=== PATIENT | male | born 1945 | race Caucasian/White ===

== ENCOUNTER 2025-05-29 00:02 | Inpatient (IN) | payer MEDICARE, SELFPAY ==
[2025-05-28] VITALS (12 sets, daily range): BP systolic 90–152; BP diastolic 51–94
[2025-05-28 15:05] LABS: Hematocrit 29.5 % (39.0-52.0); Hemoglobin 9.8 g/dL (13.0-18.0); Mean Corp Hgb Conc. 33.2 g/dL (33.0-37.0); Mean Corpuscular Volume 97.4 fL (80.0-94.0); Nucleated Red Blood Cells % 0 % (-); Platelet Count 243 10^3/uL (130-400); Red Cell Dist. Width 15.6 % (11.5-14.5)
[2025-05-28 15:25] LABS: ALT (SGPT) 14 U/L (0-50); AST (SGOT) 19 U/L (17-59); Albumin 4.4 g/dl (3.5-5.0); Alkaline Phosphatase 64 U/L (38-126); Blood Urea Nitrogen 23 mg/dl (9-20); Calcium 9.2 mg/dl (8.4-10.2); Carbon Dioxide 25 mmol/L (22-30); Chloride 104 mmol/L (98-107); Glucose 212 mg/dl (70-99); Potassium 4.7 mmol/L (3.5-5.1); Sodium 138 mmol/L (135-145); Total Protein 7.0 g/dl (6.3-8.2); eGFR > 60.00
[2025-05-28] MEDS: TYLENOL 1000 MG PO (18:40)
[2025-05-28] MEDS: TORADOL 15 MG IM (18:40)
--- NOTE | 2025-05-28 19:32 | ED.GENMED ---
History of Present Illness
General
Chief Complaint: Fall
Source: patient and family
Exam Limitations: none
Time Seen by Provider: 05/28/25 17:02
Nursing documentation reviewed up to this point in time: agreed with
History of Present Illness
History of Present Illness:
79-year-old male presenting to the emergency department today with concerns of multiple falls, feeling off balance and lightheaded at home. Now having significant pain to the left hip which he believes he hit when falling. Unable to ambulate at
this point secondary to hip pain on the left side. Denies any specific chest pain shortness of breath nausea vomiting. Denies numbness or any focal weakness
Past History
Past History
ED Past Medical History: NIDDM and Other (Cataracts)
ED Past Surgical History: Orthopedic
Review of Systems
Review of Systems
Allergies reviewed?: Yes
All Other Systems: ROS reviewed and negative except as documented in HPI and ROS
Phy Exam
Physical Exam
Physical Exam:
GENERAL: Alert , in no apparent distress
EYE: pupils equal and reactive
NECK: Supple, no significant adenopathy.
ENT: o/p clr, mmm.
CARDIAC: Regular rate and rhythm .
LUNGS: Clear breath sounds bilaterally, no acute respiratory distress, no wheezes/rales/rhonchi
ABDOMEN: Soft, without focal tenderness, no r/g, no cvat
NEUROLOGICAL: Alert and oriented, no focal neuro deficits
SKIN: Warm and dry, skin intact.
MUSCULOSKELETAL: Significant discomfort to palpation to the left lateral hip. Unable to move at the hip secondary to pain. No overlying skin changes
PSYCH: Normal and appropriate interaction.
Course
Orders/Labs/Results
Orders:
Orders
05/28/25 14:35
EKG [Electrocardiogram (*1)] Urgent
Reason for Study: Vertigo / Dizzy
EKG- Treatment ONCE
05/28/25 14:37
CT Head W/o Iv Contrast Urgent
Comment:
Reason For Exam: fall
05/28/25 14:48
Complete Blood Count/With Diff Urgent
Comprehensive Metabolic Panel Urgent
Creatine Phosphokinase Urgent
Comment: ADD ON
05/28/25 17:35
Hip, Left 2-3 Views [CR Hip - LT w/wo Pel 2-3 Vw*] Urgent
Comment:
Reason For Exam: left hip pain after fall pelvic pain
Include a pelvis x-ray?: Yes
05/28/25 17:55
Add On- LAB Urgent
Tests Added?: Creatine phosphokinase
05/28/25 18:34
Acetaminophen [Tylenol] 1,000 mg PO NOW STA
Ketorolac [Toradol] 15 mg IM NOW STA
05/28/25 19:05
CT Pelvis W/o Iv Contrast Urgent
Comment:
Reason For Exam: left hip pain xray WNL, cant walk
05/28/25 22:21
0.9% Sodium Chloride 500 ml [Nss] 500 ml IV BOLUS
Fentanyl Citrate/Pf [Sublimaze] 50 mcg IV NOW STA
Abnormal Lab Results
05/28/25
14:48
WBC 11.9 H 10^3/uL
(4.8-10.8)
RBC 3.03 L 10^6/uL
(4.70-6.10)
Hgb 9.8 L g/dL
(13.0-18.0)
Hct 29.5 L %
(39.0-52.0)
MCV 97.4 H fL
(80.0-94.0)
MCH 32.3 H pg
(27.0-31.0)
RDW 15.6 H %
(11.5-14.5)
MPV 11.6 H fL
(7.4-10.4)
Absolute Neuts (auto) 9.7 H 10^3/uL
(1.4-6.5)
Absolute Lymphs (auto) 1.1 L 10^3/uL
(1.2-3.4)
Absolute Monos (auto) 0.9 H 10^3/uL
(0.1-0.6)
Neutrophils % 82.1 H %
(42.2-75.2)
Lymphocytes % 9.0 L %
(20.5-51.1)
BUN 23 H mg/dl
(9-20)
Glucose 212 H mg/dl
(70-99)
Total Bilirubin 1.4 H mg/dl
(0.2-1.3)
05/28/25 14:48
05/28/25 14:48
Vital Signs
Initial and Last Documented VS:
Initial Vital Signs
Temp Pulse Resp BP Pulse Ox
97.5 F 87 16 121/78 97
05/28/25 14:30 05/28/25 14:30 05/28/25 14:30 05/28/25 14:30 05/28/25 14:30
Last Documented Vital Signs
Temp Pulse Resp BP Pulse Ox
97.5 F 83 15 90/55 93
05/28/25 14:30 05/28/25 22:45 05/28/25 22:45 05/28/25 22:30 05/28/25 22:45
MDM/Problems Addressed
MDM/Problems Addressed:
79-year-old male presenting to the emergency department after multiple falls over the past day or so. Has been feeling somewhat lightheaded and believes he passed out yesterday. Did feel lightheaded preceding this. Also felt weak today fell to
the ground as well hit his right hip. Was already having severe left-sided hip pain. Was unable to ambulate at home or stand up. Does have a history of pelvic fractures. Initial x-ray it was unclear whether there was any specific fracture CT
scan was then ordered that confirmed greater trochanter fracture. No evidence of additional fracture otherwise. Head CT negative labs close the patient's baseline is hyperglycemic but no signs of DKA. Patient unable to walk at this point was
given Toradol and Tylenol with some relief but still significant pain unable to weight-bear plan to admit for further assessment.
*Pulse Oximetry
SaO2: 100
Oxygen Mode of Delivery: Room air
Patient hypoxic: no (93)
*Critical Care Note
Total Time (30-74mins, 75-104mins- exclusive of procedures): Not Applicable
ED Attending Note
-
Portions of this chart may have been created with voice recognition software.� Occasional wrong word or��sound alike� substitutions may have occurred due to the inherent limitations of voice recognition software.
Discharge Plan
Departure
Patient Disposition: Admit
Date of Disposition: 05/28/25
Time of Disposition: 23:00
Admit to: Med/Surg
Admit to doctor: Bailey
Presentation/result/management discussed w/ accepting MD/DO: Hospitalist
Patient with high blood pressure during this ER visit?: No
Condition: Good
Covid-19: Not Applicable
Discharge Problem:
Closed fracture of greater trochanter of femur
Prescriptions:
No Action
multivitamin Tablet
1 tab PO DAILY
metformin 500 mg tablet
1,000 mg PO BID@0800,1700
cyanocobalamin (vitamin B-12) 1,000 mcg Tablet
1,000 mcg PO DAILY Qty: 0
ascorbic acid (vitamin C) [Vitamin C] 500 mg Tablet
500 mg PO DAILY Qty: 0
ferrous sulfate 325 mg (65 mg iron) Tablet
325 mg PO DAILY
aspirin 81 mg Tablet,Chewable
81 mg PO DAILY
lisinopril 5 mg tablet
5 mg PO DAILY
cholecalciferol (vitamin D3) [Vitamin D3] 25 mcg (1,000 unit) Tablet
25 mcg PO DAILY Qty: 0
omega 0-[id number]-fish oil [Fish Oil] 1,000 mg (120 mg-180 mg) Capsule
1 cap PO DAILY
atorvastatin [Lipitor] 20 mg Tablet
20 mg PO DAILY
docusate sodium 100 mg Capsule
100 mg PO BID Qty: 30 0RF
glipizide 5 mg Tablet
5 mg PO BID AT 0800,1700 Qty: 60 0RF
sennosides [Senna Lax] 8.6 mg Tablet
17.2 mg PO BID Qty: 30 0RF
oxycodone 5 mg Tablet
5 mg PO Q4HPRN PRN (Reason: mild pain) Qty: 20 0RF
tramadol 50 mg tablet
50 mg PO Q8H PRN (Reason: Pain) Qty: 14 0RF
Referrals:
Jr Almanzar MD [Family Provider, Family Practice]
Interventions
Interventions:
*Risk Screen - Suicide Last Done: 05/28/25 14:30
*General Assessment Last Done: 05/28/25 14:30
*ED COVID-19 Vaccine History Last Done: 05/28/25 14:30
ED-Musculoskeletal Assessment Last Done: 05/28/25 17:00
ED- Neurological Assessment Last Done: 05/28/25 17:00
ED-Skin Assessment Last Done: 05/28/25 17:00
Discharge Date and Time
Print Language: PALAUAN
[2025-05-28] MEDS: NSS 500 IV (22:26)
[2025-05-28] MEDS: SUBLIMAZE 50 MCG IV (22:28)
--- NOTE | 2025-05-28 23:36 | HPS.HSE ---
Family Physician
-
Family Physician: Jr Almanzar
Chief Complaint
-
Fall
History of Present Illness
79-year-old man with multiple falls, feeling off balance, and lightheaded at home. He has significant pain to the left hip after a fall. He is Unable to ambulate at this point secondary to hip pain on the left side. He Denies any specific chest
pain shortness of breath nausea vomiting. Denies numbness or any focal weakness. 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
Medical History
Past Medical History
Past Medical History: Reports Other
Additional Past Medical History:
NIDDM
Cataracts
essential HTN
hyperlipedimia
iron deficiency anemia
Past Surgical History: Reports None
Social History
Tobacco: Non-smoker
Alcohol: None
Drug: None
Employment: Retired
Family History
Family History: Not pertinent
Allergies / Home Medications
Allergies reflects when Allergies were last updated in [employer].
Home Medications with original date entered in [employer]
Allergy/Medication List:
Allergies
Allergy/AdvReac Type Severity Reaction Status Date / Time
No Known Allergies Allergy Verified 05/28/25 14:34
Home Medications
ascorbic acid (vitamin C) 500 mg tablet (Vitamin C) 500 mg PO DAILY Supplement ##0 04/18/23
aspirin 81 mg chewable tablet 81 mg PO DAILY Blood Clot Prevention/Tx 04/18/23
cholecalciferol (vitamin D3) 25 mcg (1,000 unit) tablet (Vitamin D3) 25 mcg PO DAILY Supplement ##0 04/18/23
cyanocobalamin (vitamin B-12) 1,000 mcg tablet 1,000 mcg PO DAILY Supplement ##0 04/18/23
ferrous sulfate 325 mg (65 mg iron) tablet 325 mg PO DAILY Supplement 04/18/23
lisinopril 5 mg tablet 5 mg PO DAILY Blood Pressure 04/18/23
metformin 500 mg tablet 1,000 mg PO BID@0800,1700 Diabetes 04/18/23
multivitamin 1 tab PO DAILY Supplement 04/18/23
omega [id number]-mzi-[id number]-fish oil 1,000 mg (120 mg-180 mg) capsule (Fish Oil) 1 cap PO DAILY Supplement 04/18/23
atorvastatin 20 mg tablet (Lipitor) 20 mg PO DAILY High Cholesterol 09/08/23
docusate sodium 100 mg capsule 100 mg PO BID #30 caps 09/11/23
glipizide 5 mg tablet 5 mg PO BID AT 0800,1700 #60 tabs 09/11/23
oxycodone 5 mg tablet 5 mg PO Q4HPRN PRN mild pain #20 tabs 09/11/23
sennosides 8.6 mg tablet (Senna Lax) 17.2 mg (2 x 8.6 mg) PO BID #30 tabs 09/11/23
tramadol 50 mg tablet 50 mg PO Q8H PRN Pain #14 tabs 10/08/23
Review of Systems
-
History Source: Patient
A 12 point ROS was completed and negative except as noted: Yes
Physical Exam
Vital Signs
Vital Signs
Temp Pulse Resp BP Pulse Ox
97.5 F 83 15 90/55 93
05/28/25 14:30 05/28/25 22:45 05/28/25 22:45 05/28/25 22:30 05/28/25 22:45
Physical Exam
General: Well Developed, Well Nourished, No Apparent Distress, Comfortable and Conversant
HEENT: No Ptosis, Nose Appears Normal and Ears Appear Normal
Respiratory: Clear
Cardiac: S1/S2 and Regular Rhythm
GI: Soft, Non Tender and Non Distended
Musculoskeletal: No Clubbing, No Cyanosis and No Edema
Skin: Warm and Dry
Neuro: Awake, Alert and Oriented
Psych: Calm
Laboratory Results
-
05/28/25 14:48
05/28/25 14:48
Laboratory Results
Total Bilirubin 1.4 mg/dl (0.2-1.3) H 05/28/25 14:48
AST 19 U/L (17-59) 05/28/25 14:48
ALT 14 U/L (0-50) 05/28/25 14:48
Alkaline Phosphatase 64 U/L (38-126) 05/28/25 14:48
Data Reviewed
-
Lab Data: Labs Reviewed by me
Impression/Plan
-
IMPRESSION:
79 man with fall and fracture. CT shows:
subtle comminuted fracture involving the greater trochanter of the left proximal femur, without significant displacement.
There is some stranding soft tissue density lateral to the greater trochanter, suggesting adjacent soft tissue contusion.
There is no evidence for fracture of the left femoral neck or left femoral head.
Deformity of the inferior pubic rami bilaterally compatible with old healed fractures.
Deformity of the junction of the left superior pubic ramus and the left acetabulum compatible with old healed fracture.
Interval healing of left sacral fracture.
PLAN:
1. Comminuted fracture of left proximal femur
Ortho consult to decide if surgery needed
Plan thereafter depending on this decision
In meantime, pain control and supportive care
2. DM
ISS as needed for BS control
3. BP low at 90/55 - unclear if this is contributing to falls
Tele
WESLEY
Gentle IV fluids overnight
4. BUN/Creat > 20, likely from dehydration
Gentle IV fluids overnight
recheck in am
5. Anemia - chronic, likely iron deficient, appears to be at baseline
No need to transfuse at this time.
Full code
VCD for DVTp
[2025-05-29] VITALS (10 sets, daily range): BP systolic 95–152; BP diastolic 55–76; BMI 22.0
[2025-05-29 01:58] LABS: Troponin I < 0.012 ng/ml
[2025-05-29] MEDS: ULTRAM 50 MG PO ×2 (02:16→12:01)
[2025-05-29] MEDS: NSS 1000 IV ×3 (02:16→21:54)
[2025-05-29 06:48] LABS: Hematocrit 26.3 % (39.0-52.0); Hemoglobin 8.6 g/dL (13.0-18.0); Mean Corp Hgb Conc. 32.7 g/dL (33.0-37.0); Mean Corpuscular Volume 99.2 fL (80.0-94.0); Platelet Count 201 10^3/uL (130-400); Red Cell Dist. Width 15.6 % (11.5-14.5)
[2025-05-29 06:54] LABS: Blood Urea Nitrogen 27 mg/dl (9-20); Calcium 8.0 mg/dl (8.4-10.2); Carbon Dioxide 27 mmol/L (22-30); Chloride 107 mmol/L (98-107); Estimated Creatinine Clearance 47 ml/min; Glucose 317 mg/dl (70-99); Potassium 4.8 mmol/L (3.5-5.1); Sodium 139 mmol/L (135-145); eGFR > 60.00
[2025-05-29 07:13] LABS: Troponin I < 0.012 ng/ml
[2025-05-29] MEDS: LOW STRENGTH ASPIRIN 81 MG PO (08:00)
[2025-05-29] MEDS: FEOSOL 325 MG PO (08:00)
[2025-05-29] MEDS: ROXICODONE 5 MG PO ×2 (08:01→18:28)
[2025-05-29] MEDS: VITAMIN D3 (cholecalciferol) 25 MCG PO (08:02)
[2025-05-29] MEDS: LIPITOR 20 MG PO (08:02)
[2025-05-29] MEDS: VITAMIN B-12 1000 MCG PO (08:02)
[2025-05-29] MEDS: COLACE 100 MG PO ×2 (08:02→21:38)
[2025-05-29] MEDS: VITAMIN C 500 MG PO (08:02)
[2025-05-29] MEDS: SENOKOT 17.2 MG PO ×2 (08:03→21:38)
--- NOTE | 2025-05-29 08:03 | W.PN.HOSP.TC ---
Today's Communication/Plan
-
PT/OT
Pain control
Acute Rehab placement
Assessment / Plan
Assessment / Plan
Physical Exam
General: Well Developed, Well Nourished, No Apparent Distress, Comfortable and Conversant
HEENT: No Ptosis, Nose Appears Normal and Ears Appear Normal
Respiratory: Clear
Cardiac: S1/S2 and Regular Rhythm
GI: Soft, Non Tender and Non Distended
Musculoskeletal: No Cyanosis and No Edema
Skin: Warm and Dry
Neuro: Awake, Alert and Oriented
Psych: Calm
Assessment/Plan
79-year-old man with multiple falls, feeling off balance, and lightheaded at home. He has significant pain to the left hip after a fall. He is Unable to ambulate at this point secondary to hip pain on the left side. He Denies any specific chest
pain shortness of breath nausea vomiting. Denies numbness or any focal weakness. 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
79 man with fall and fracture. CT shows:
subtle comminuted fracture involving the greater trochanter of the left proximal femur, without significant displacement.
There is some stranding soft tissue density lateral to the greater trochanter, suggesting adjacent soft tissue contusion.
There is no evidence for fracture of the left femoral neck or left femoral head.
Deformity of the inferior pubic rami bilaterally compatible with old healed fractures.
Deformity of the junction of the left superior pubic ramus and the left acetabulum compatible with old healed fracture.
Interval healing of left sacral fracture.
#Presentation after multiple falls over the few days prior to presentation
#Comminuted fracture of left proximal femur
Ortho consult
WBAT LLE
In meantime, pain control and supportive care
#DM
ISS as needed for BS control
#BP low at 90/55 - unclear if this is contributing to falls
Tele
Gentle IV fluids overnight
#BUN/Creat > 20, likely from dehydration
Gentle IV fluids
recheck BMP in am
#Anemia - chronic, likely iron deficient, appears to be at baseline
No need to transfuse at this time.
Code Status: Full code
DVT Prophylaxis: SCDs and Heparin Subq
Anticipated Discharge: > 48 hours
Subjective/Interval History
-
Date of Service: May 29, 2025
Patient was seen and examined. He reported pain from his left hip but otherwise denied any other significant symptoms or complaints.
Objective Data
-
Labs:
Laboratory Results
05/29/25
06:19
WBC 6.5
Hgb 8.6 L
Hct 26.3 L
Plt Count 201
Sodium 139
Potassium 4.8
Chloride 107
Carbon Dioxide 27
BUN 27 H
Creatinine 1.2
Glucose 317 H
Calcium 8.0 L
Vital Signs:
Vital Signs
Temp Pulse Resp BP Pulse Ox
97.5 F 63 15 134/70 94
05/29/25 07:35 05/29/25 07:35 05/29/25 07:35 05/29/25 07:35 05/29/25 07:35
I&O
05/28/25 05/29/25 05/30/25
06:59 06:59 06:59
Intake Total 400 / 400
Output Total 225 / 225
Balance 175 / 175
[2025-05-29 08:27] LABS: Glucose - Point of Care 296 mg/dl (70-99)
[2025-05-29 11:52] LABS: Glucose - Point of Care 315 mg/dl (70-99)
[2025-05-29] MEDS: NOVOLOG FLEXPEN-LOW RESISTANCE 4 UNITS SC (12:02)
[2025-05-29] MEDS: HEPARIN 5000 UNITS SC ×2 (13:41→21:38)
--- NOTE | 2025-05-29 13:47 | W.PN.UPDATE ---
Update Note
Progress Note Update
Full consult dictated. 79 yo male admitted last evening after multiple falls over the past couple of days. Xrays and CT scan revealed a nondisplaced right greater trochanteric comminuted fracture with no extension to the femoral neck or
intertrochanteric region. Patient unable to ambulate last evening and admitted for care. On PE, the patient answers questions appropriately with family member at bedside. VSS. LLE: tender about the left greater trochanter. Minimal tenderness
with ROM of right hip. No swelling about the knee or ankle. NVI distally. Calf soft. Radiographs and CT reviewed and results as above. Discussed treatment plan. Patient is able to be WBAT LLE. PT/OT and case management consults.
[2025-05-29 14:31] LABS: Troponin I < 0.012 ng/ml
[2025-05-29 15:39] LABS: Albumin 3.5 g/dl (3.5-5.0)
[2025-05-29 16:54] LABS: Glucose - Point of Care 242 mg/dl (70-99)
[2025-05-29] MEDS: NOVOLOG FLEXPEN-LOW RESISTANCE 2 UNITS SC (18:08)
[2025-05-29 22:01] LABS: Glucose - Point of Care 279 mg/dl (70-99)
[2025-05-30] VITALS (8 sets, daily range): BP systolic 121–157; BP diastolic 54–74; PULSE 62; O2SAT 97
[2025-05-30] MEDS: TYLENOL 650 MG PO ×4 (02:22→23:25)
[2025-05-30 04:45] LABS: Hematocrit 26.9 % (39.0-52.0); Hemoglobin 9.0 g/dL (13.0-18.0); Mean Corp Hgb Conc. 33.5 g/dL (33.0-37.0); Mean Corpuscular Volume 97.1 fL (80.0-94.0); Platelet Count 191 10^3/uL (130-400); Red Cell Dist. Width 15.5 % (11.5-14.5)
[2025-05-30 05:05] LABS: Blood Urea Nitrogen 18 mg/dl (9-20); Calcium 7.9 mg/dl (8.4-10.2); Carbon Dioxide 22 mmol/L (22-30); Chloride 110 mmol/L (98-107); Estimated Creatinine Clearance 63 ml/min; Glucose 237 mg/dl (70-99); Magnesium 1.5 mg/dl (1.6-2.3); Potassium 4.7 mmol/L (3.5-5.1); Sodium 137 mmol/L (135-145); eGFR > 60.00
[2025-05-30 08:12] LABS: Glucose - Point of Care 222 mg/dl (70-99)
[2025-05-30] MEDS: VITAMIN B-12 1000 MCG PO (09:00)
[2025-05-30] MEDS: NSS 1000 IV (09:06)
[2025-05-30] MEDS: HEPARIN 5000 UNITS SC ×2 (09:09→19:57)
[2025-05-30] MEDS: NOVOLOG FLEXPEN-LOW RESISTANCE 2 UNITS SC (09:09)
[2025-05-30] MEDS: VITAMIN C 500 MG PO (09:10)
[2025-05-30] MEDS: VITAMIN D3 (cholecalciferol) 25 MCG PO (09:10)
[2025-05-30] MEDS: LOW STRENGTH ASPIRIN 81 MG PO (09:11)
[2025-05-30] MEDS: LIPITOR 20 MG PO (09:12)
[2025-05-30] MEDS: FEOSOL 325 MG PO (09:12)
[2025-05-30] MEDS: SENOKOT 17.2 MG PO ×2 (09:14→19:56)
[2025-05-30] MEDS: COLACE 100 MG PO ×2 (09:14→19:57)
--- NOTE | 2025-05-30 09:54 | CM ---
Addendum entered by Manjula Khan RN 05/30/25 14:05:
Reviewed PT recommendation and spoke with the patient regarding short term SNFs. Patient feels he is find to return home. CM spoke with the patient's daughter Grazyna via telephone. Per Grazyna, the patient is not the mobile solutions architect to spouse. The
spouse is the mobile solutions architect to the patient. The spouse does have some dementia, but does all the cooking, cleaning, and waiting on the patient. Patient is unable to ambulate at home to use bathroom, he uses a urinal. Per daughter, the patient has on
multiple occasions taken the spouse down when he has fallen. Per daughter, patient is unsteady in the home, falling frequently. Family needs to come and pick the patient up after each fall. Family does not feel he is safe to return to home
without going to rehab first.
Original Note:
Reviewed the chart notes and spoke with the patient at the bedside. The patient resides with his spouse in a split level home with five steps to enter. The patient reports having a cane, wheelchair and shower chair. The patient has had [facility] in
the past, but no SNF. The patient confirmed his [facility] of choice [facility]. CM continues to be available to patient/family and is monitoring medical plan for needs at discharge.
Plan: Discharge plans will depend on the patient's progress.
[2025-05-30 12:06] LABS: Glucose - Point of Care 297 mg/dl (70-99)
[2025-05-30] MEDS: NOVOLOG FLEXPEN-LOW RESISTANCE 3 UNITS SC ×2 (13:08→17:47)
[2025-05-30] MEDS: MAGNESIUM SULFATE 102 GRAMS IV (14:45)
[2025-05-30 14:59] LABS: Albumin 3.3 g/dl (3.5-5.0)
[2025-05-30 16:23] LABS: Glucose - Point of Care 269 mg/dl (70-99)
--- NOTE | 2025-05-30 18:57 | W.PN.HOSP.TC ---
Today's Communication/Plan
-
Placement pending
Assessment / Plan
Assessment / Plan
Physical Exam
General: Well Developed, Well Nourished, No Apparent Distress, Comfortable and Conversant
HEENT: No Ptosis, Nose Appears Normal and Ears Appear Normal
Respiratory: Clear
Cardiac: S1/S2 and Regular Rhythm
GI: Soft, Non Tender and Non Distended
Musculoskeletal: No Cyanosis and No Edema
Skin: Warm and Dry
Neuro: Awake, Alert and Oriented
Psych: Calm
Assessment/Plan
79-year-old man with multiple falls, feeling off balance, and lightheaded at home. He has significant pain to the left hip after a fall. He is Unable to ambulate at this point secondary to hip pain on the left side. He Denies any specific chest
pain shortness of breath nausea vomiting. Denies numbness or any focal weakness. 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
79 man with fall and fracture. CT shows:
subtle comminuted fracture involving the greater trochanter of the left proximal femur, without significant displacement.
There is some stranding soft tissue density lateral to the greater trochanter, suggesting adjacent soft tissue contusion.
There is no evidence for fracture of the left femoral neck or left femoral head.
Deformity of the inferior pubic rami bilaterally compatible with old healed fractures.
Deformity of the junction of the left superior pubic ramus and the left acetabulum compatible with old healed fracture.
Interval healing of left sacral fracture.
#Presentation after multiple falls over the few days prior to presentation
#Comminuted fracture of left proximal femur
Ortho consult
WBAT LLE
In meantime, pain control and supportive care
#DM
ISS as needed for BS control
Resumed Glipizide
Will consider resuming Metformin soon
#BP was previously low at 90/55 - unclear if this is contributing to falls
Tele
Gentle IV fluids given
#Hypertension
#BUN/Creat > 20, likely from dehydration
Gentle IV fluids given
recheck BMP in am
#Anemia - chronic, likely iron deficient, appears to be at baseline
No need to transfuse at this time.
Code Status: Full code
DVT Prophylaxis: SCDs and Heparin Subq
Anticipated Discharge: 24 - 48 hours
Subjective/Interval History
-
Date of Service: May 30, 2025
Patient was seen and examined. He denied any complaints.
Objective Data
-
Vital Signs:
Vital Signs
Temp Pulse Resp BP Pulse Ox
97.9 F 59 16 135/62 98
05/30/25 15:35 05/30/25 15:35 05/30/25 15:35 05/30/25 15:35 05/30/25 15:35
I&O
05/29/25 05/30/25 05/31/25
06:59 06:59 06:59
Intake Total 2520 / 2520 1310 / 1310
Output Total 675 / 675 890 / 890
Balance 1845 / 1845 420 / 420
[2025-05-30] MEDS: GLUCOTROL 5 MG PO (19:57)
[2025-05-30 21:45] LABS: Glucose - Point of Care 230 mg/dl (70-99)
[2025-05-31] VITALS (9 sets, daily range): BP systolic 109–165; BP diastolic 64–79; PULSE 69–98; O2SAT 97–98
[2025-05-31 06:46] LABS: Hematocrit 26.1 % (39.0-52.0); Hemoglobin 8.8 g/dL (13.0-18.0); Mean Corp Hgb Conc. 33.7 g/dL (33.0-37.0); Mean Corpuscular Volume 96.3 fL (80.0-94.0); Platelet Count 241 10^3/uL (130-400); Red Cell Dist. Width 14.9 % (11.5-14.5)
[2025-05-31 06:57] LABS: Blood Urea Nitrogen 17 mg/dl (9-20); Calcium 9.0 mg/dl (8.4-10.2); Carbon Dioxide 24 mmol/L (22-30); Chloride 111 mmol/L (98-107); Estimated Creatinine Clearance 63 ml/min; Glucose 124 mg/dl (70-99); Magnesium 1.8 mg/dl (1.6-2.3); Potassium 4.5 mmol/L (3.5-5.1); Sodium 140 mmol/L (135-145); eGFR > 60.00
[2025-05-31 07:18] LABS: Glucose - Point of Care 155 mg/dl (70-99)
--- NOTE | 2025-05-31 07:26 | PN.DE.MGMTRT ---
Insulin Management
- -
05/31/2024 Diabetes management Consult
Patient admitted 05/28 s/p fall - L hip fracture. PMH Multiple falls, diabetes, HTN, HLD, chronic iron deficiency anemia. Prior to admission was taking glipizide 5 mg BID and metformin 1000 mg BID. No A1C is obtained, cr today .9, eGFR > 60.
Patient is awake alert able to discuss diabetes care. He is unsure how long he has had diabetes but he thinks ~ 10 years.
Glucose range 222 to 293 yesterday, glipizide given last evening, Fasting glucose this AM 124. Will continue 5 mg Glipizide BID and resume metformin 1000 mg BID with corrective insulin.
Discussed with nurse.
Will follow.
Diabetes History
- -
Type of Diabetes: 2
Pre-Admission Diabetes Regimen
05/31/25
05:40
Creatinine 0.9
Insulin Pump Settings
IP Diabetes Regimen
05/30/25 05/30/25 05/30/25
08:11 12:04 16:22
Glucose
POC Glucose 222 H 297 H 269 H
05/30/25 05/31/25 05/31/25
21:44 05:40 07:16
Glucose 124 H
POC Glucose 230 H 155 H
Meal type: Dinner
Meal type: Lunch
Meal type: Breakfast
Amount consumed: 90%
Amount consumed: 100%
Amount consumed: 100%
Patient Education
[2025-05-31] MEDS: LIPITOR 20 MG PO (08:14)
[2025-05-31] MEDS: NOVOLOG FLEXPEN-LOW RESISTANCE 1 UNITS SC (08:14)
[2025-05-31] MEDS: VITAMIN B-12 1000 MCG PO (08:15)
[2025-05-31] MEDS: FEOSOL 325 MG PO (08:15)
[2025-05-31] MEDS: GLUCOTROL 5 MG PO ×2 (08:15→17:30)
[2025-05-31] MEDS: VITAMIN C 500 MG PO (08:15)
[2025-05-31] MEDS: SENOKOT 17.2 MG PO ×2 (08:15→19:36)
[2025-05-31] MEDS: VITAMIN D3 (cholecalciferol) 25 MCG PO (08:15)
[2025-05-31] MEDS: HEPARIN 5000 UNITS SC ×2 (08:15→19:36)
[2025-05-31] MEDS: COLACE 100 MG PO ×2 (08:15→19:36)
[2025-05-31] MEDS: GLUCOPHAGE 1000 MG PO ×2 (08:15→17:30)
[2025-05-31] MEDS: LOW STRENGTH ASPIRIN 81 MG PO (08:15)
[2025-05-31] MEDS: TYLENOL 650 MG PO (08:20)
[2025-05-31] MEDS: THERAGRAN 1 TABLET PO (10:06)
[2025-05-31] MEDS: ZESTRIL 5 MG PO (10:08)
--- NOTE | 2025-05-31 10:12 | W.PN.HOSP.TC ---
Today's Communication/Plan
-
Anticipated discharge to SNF tomorrow
See plan
Assessment / Plan
Assessment / Plan
Physical Exam
General: Well Developed, Well Nourished, No Apparent Distress, Comfortable and Conversant
HEENT: No Ptosis, Nose Appears Normal and Ears Appear Normal
Respiratory: Clear
Cardiac: S1/S2 and Regular Rhythm
GI: Soft, Non Tender and Non Distended
Musculoskeletal: No Cyanosis and No Edema
Skin: Warm and Dry
Neuro: Awake, Alert and Oriented
Psych: Calm
Assessment/Plan
79-year-old man with multiple falls, feeling off balance, and lightheaded at home. He has significant pain to the left hip after a fall. He is Unable to ambulate at this point secondary to hip pain on the left side. He Denies any specific chest
pain shortness of breath nausea vomiting. Denies numbness or any focal weakness. 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
79 man with fall and fracture. CT shows:
subtle comminuted fracture involving the greater trochanter of the left proximal femur, without significant displacement.
There is some stranding soft tissue density lateral to the greater trochanter, suggesting adjacent soft tissue contusion.
There is no evidence for fracture of the left femoral neck or left femoral head.
Deformity of the inferior pubic rami bilaterally compatible with old healed fractures.
Deformity of the junction of the left superior pubic ramus and the left acetabulum compatible with old healed fracture.
Interval healing of left sacral fracture.
#Presentation after multiple falls over the few days prior to presentation
#Comminuted fracture of left proximal femur
Ortho consult
WBAT LLE
In meantime, pain control and supportive care
Check orthostatic vital signs
Echocardiogram is unremarkable
Serum Vitamin B12, TSH, and Vitamin D levels are unremarkable
Monitor on telemetry
Falls likely due to visual issues as well as that his Left leg is shorter than his right leg after a surgery he had years ago. he said he usually wears a splint in his shoe but was not at the time for the fall
Consider out Brain MRI
#DM
ISS as needed for BS control
Resumed Glipizide
Resumed Metformin
#Hypertension
#BUN/Creat > 20, likely from dehydration
Gentle IV fluids given
recheck BMP outpatient
#Anemia - chronic, likely iron deficient, appears to be at baseline
No need to transfuse at this time.
Code Status: Full code
DVT Prophylaxis: SCDs and Heparin Subq
Anticipated Discharge: Within 24 hours
Subjective/Interval History
-
Date of Service: May 31, 2025
Patient was seen and examined. He denied any complaints when he was seen.
Objective Data
-
Labs:
Laboratory Results
05/31/25
05:40
WBC 8.1
Hgb 8.8 L
Hct 26.1 L
Plt Count 241 D
Sodium 140
Potassium 4.5
Chloride 111 H
Carbon Dioxide 24
BUN 17
Creatinine 0.9
Glucose 124 H
Calcium 9.0
Vital Signs:
Vital Signs
Temp Pulse Resp BP Pulse Ox
97.5 F 85 16 149/75 94
05/31/25 07:13 05/31/25 10:08 05/31/25 07:13 05/31/25 10:08 05/31/25 07:13
I&O
05/30/25 05/31/25 06/01/25
06:59 06:59 06:59
Intake Total 2520 / 2520 1790 / 1790
Output Total 675 / 675 1815 / 1815 980 / 980
Balance 1845 / 1845 -25 / -25 -980 / -980
[2025-05-31 11:41] LABS: Glucose - Point of Care 233 mg/dl (70-99)
[2025-05-31] MEDS: NOVOLOG FLEXPEN-LOW RESISTANCE 2 UNITS SC (11:42)
--- NOTE | 2025-05-31 12:57 | CM ---
Addendum entered by Dave Munguia 05/31/25 14:18:
Patient aware of available bed at [facility] for tomorrow. IMM completed. Transport forms completed and are on chart. NEED TO SCHEDULE TRANSPORT TIME.
Addendum entered by Dave Munguia 05/31/25 13:42:
[facility] has accepted patient for tomorrow, 06/01/25. Daughter aware.
Original Note:
Discharge POC: Therapy recommendation for SNF. Attempted to meet with patient. He was in therapy session. Called and reviewed [employer] list with daughter Chantal. Daughter's preferences are: [facility], [facility], [facility] and
[facility]. Referrals forwarded.
[2025-05-31] MEDS: ULTRAM 25 MG PO ×2 (13:22→19:35)
[2025-05-31 15:36] LABS: Vitamin D, 25-OH*** 39.9 ng/mL (30-80)
[2025-05-31 16:10] LABS: Vitamin B12 914 pg/ml (239-931)
[2025-05-31 17:05] LABS: Glucose - Point of Care 284 mg/dl (70-99)
[2025-05-31] MEDS: NOVOLOG FLEXPEN-LOW RESISTANCE SC (17:29)
[2025-05-31 21:31] LABS: Glucose - Point of Care 262 mg/dl (70-99)
[2025-06-01 03:10] VITALS: BP 126/77; BP 138/66
[2025-06-01 07:32] VITALS: BP 133/68
[2025-06-01 07:40] LABS: Glucose - Point of Care 120 mg/dl (70-99)
[2025-06-01] MEDS: NOVOLOG FLEXPEN-LOW RESISTANCE SC (07:40)
--- NOTE | 2025-06-01 08:29 | PN.DE.MGMTRT ---
Insulin Management
- -
06/01/2024 Diabetes management Consult Follow up
Patient admitted 05/28 s/p fall - L hip fracture. PMH Multiple falls, diabetes, HTN, HLD, chronic iron deficiency anemia. Prior to admission was taking glipizide 5 mg BID and metformin 1000 mg BID. No A1C is obtained, cr today .9, eGFR > 60.
Patient is awake alert able to discuss diabetes care. He is unsure how long he has had diabetes but he thinks ~ 10 years.
Glucose range 155 to 284 yesterday, patient received 5 mg Glipizide BID and metformin 1000 mg BID with corrective insulin. Due to patient age and comorbidities a more liberal glucose range is acceptable.
Discussed with nurse.
Will follow.
Diabetes History
- -
Type of Diabetes: 2 requiring insulin
Pre-Admission Diabetes Regimen
Insulin Pump Settings
IP Diabetes Regimen
05/31/25 05/31/25 05/31/25
11:38 17:03 21:29
POC Glucose 233 H 284 H 262 H
06/01/25
07:37
POC Glucose 120 H
Meal type: Dinner
Meal type: Lunch
Meal type: Breakfast
Amount consumed: 100%
Amount consumed: 100%
Amount consumed: 95%
Patient Education
[2025-06-01] MEDS: HEPARIN 5000 UNITS SC (09:18)
[2025-06-01] MEDS: GLUCOTROL 5 MG PO (09:19)
[2025-06-01] MEDS: SENOKOT 17.2 MG PO (09:19)
[2025-06-01] MEDS: COLACE 100 MG PO (09:19)
[2025-06-01] MEDS: LOW STRENGTH ASPIRIN 81 MG PO (09:19)
[2025-06-01] MEDS: THERAGRAN 1 TABLET PO (09:19)
[2025-06-01] MEDS: ZESTRIL 5 MG PO (09:19)
[2025-06-01] MEDS: VITAMIN D3 (cholecalciferol) 25 MCG PO (09:20)
[2025-06-01] MEDS: FEOSOL 325 MG PO (09:20)
[2025-06-01] MEDS: GLUCOPHAGE 1000 MG PO (09:20)
[2025-06-01] MEDS: LIPITOR 20 MG PO (09:20)
[2025-06-01] MEDS: VITAMIN C 500 MG PO (09:20)
[2025-06-01] MEDS: ULTRAM 25 MG PO (09:28)
--- NOTE | 2025-06-01 09:48 | W.PN.HOSP.TC ---
Today's Communication/Plan
-
Discharge today
Assessment / Plan
Assessment / Plan
Physical Exam
General: Well Developed, Well Nourished, No Apparent Distress, Comfortable and Conversant
HEENT: No Ptosis, Nose Appears Normal and Ears Appear Normal
Respiratory: Clear
Cardiac: S1/S2 and Regular Rhythm
GI: Soft, Non Tender and Non Distended
Musculoskeletal: No Cyanosis and No Edema
Skin: Warm and Dry
Neuro: Awake, Alert and Oriented
Psych: Calm
Assessment/Plan
79-year-old man with multiple falls, feeling off balance, and lightheaded at home. He has significant pain to the left hip after a fall. He is Unable to ambulate at this point secondary to hip pain on the left side. He Denies any specific chest
pain shortness of breath nausea vomiting. Denies numbness or any focal weakness. 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
79 man with fall and fracture. CT shows:
subtle comminuted fracture involving the greater trochanter of the left proximal femur, without significant displacement.
There is some stranding soft tissue density lateral to the greater trochanter, suggesting adjacent soft tissue contusion.
There is no evidence for fracture of the left femoral neck or left femoral head.
Deformity of the inferior pubic rami bilaterally compatible with old healed fractures.
Deformity of the junction of the left superior pubic ramus and the left acetabulum compatible with old healed fracture.
Interval healing of left sacral fracture.
#Presentation after multiple falls over the few days prior to presentation
#Falls likely due to visual issues as well as that his Left leg is shorter than his right leg after a surgery he had years ago; patient said he usually wears a splint in his shoe but was not at the time for the fall
#Subtle comminuted fracture involving the greater trochanter of the left proximal femur without displacement
Ortho consult
WBAT LLE
In meantime, pain control and supportive care
Orthostatic vital signs negative
Echocardiogram is unremarkable
Serum Vitamin B12, TSH, and Vitamin D levels are unremarkable
Monitored on telemetry
Falls likely due to visual issues as well as that his Left leg is shorter than his right leg after a surgery he had years ago. he said he usually wears a splint in his shoe but was not at the time for the fall
Consider outpatient Brain MRI if appropriate
#DM
ISS as needed for BS control
Continue Glipizide and Metformin
#Hypertension
#BUN/Creat > 20, likely from dehydration
Gentle IV fluids given
recheck BMP outpatient
#Anemia - chronic, likely iron deficient, appears to be at baseline
No need to transfuse at this time.
Code Status: Full code
DVT Prophylaxis: SCDs and Heparin Subq
More than 30 minutes spent in discharge including
Final examination of the patient
Summarizing hospital stay
Instructions for continuing care to all relevant caregivers
Preparation of discharge records, prescriptions, and referral forms
Total time spent (in minutes): 39
Anticipated Discharge: Today
Subjective/Interval History
-
Date of Service: June 01, 2025
Patient was seen and examined. He denied any chest pain, fever or any other new symptoms or complaints.
Objective Data
-
Vital Signs:
Vital Signs
Temp Pulse Resp BP Pulse Ox
97.7 F 61 20 133/68 97
06/01/25 07:32 06/01/25 07:32 06/01/25 07:32 06/01/25 07:32 06/01/25 07:32
I&O
05/31/25 06/01/25 06/02/25
06:59 06:59 06:59
Intake Total 1790 / 1790 1680 / 1680
Output Total 1815 / 1815 2230 / 2230
Balance -25 / -25 -550 / -550
[2025-06-01] MEDS: VITAMIN B-12 1000 MCG PO (10:43)
[2025-06-01 11:15] VITALS: BP 119/60
--- NOTE | 2025-06-01 11:36 | CM ---
Addendum entered by Dave Munguia 06/01/25 11:39:
Nurse to Nurse Report #: [phone]
Fax #: [phone]
Original Note:
Patient has been medically cleared for discharge to [facility] for long term and rehab services. Transport scheduled for 2:00 PM. IMM completed. Daughter notified.
[2025-06-01 11:39] LABS: Glucose - Point of Care 163 mg/dl (70-99)
--- NOTE | 2025-06-01 12:58 | W.DCSUMMARY ---
Discharge Summary
Discharge Data
Date of Admission: 05/28/25
Date of Discharge: 06/01/25
Total time spent discharging patient (in min): 39
-
Pending Results: No
Hospital Course
79 y/o male who came in after multiple falls at home. X-rays and CT imaging revealed a nondisplaced left greater trochanteric comminuted fracture. Orthopedics was consulted and recommended conservative management without surgery. Physical Therapy
and Occupational Therapy were ordered. Patient was given intravenous fluids given suspected dehydration. Patient was placed on a pain control regimen. Diabetes Nurse Practitioner was involved to help educate him on Diabetes Mellitus. Patient's falls
were thought to likely be due to visual issues as well as that his left leg being shorter than his right leg after a surgery he had years ago; patient also said he usually wears a splint in his shoe but was not at the time for the fall.
Echocardiogram was unremarkable (but please still see echocardiogram report for all the findings) and serum Vitamin B12, TSH, and Vitamin D levels were unremarkable. His orthostatic vital signs were negative. Patient was stable for discharge.
Discharge Plan
-
Patient Disposition: Care Home/SNF
Discharge Diagnosis/Procedures: #Hypomagnesemia
#Presentation after multiple falls over the few days prior to presentation
#Falls likely due to visual issues as well as that his Left leg is shorter than his right leg after a surgery he had years ago; patient said he
usually wears a splint in his shoe but was not at the time for the fall
#Subtle comminuted fracture involving the greater trochanter of the left proximal femur without displacement
#Diabetes Mellitus
#Hypertension
#Elevated BUN -- improved with intravenous fluids
#Anemia
Condition: Good
Diet: Low Fat, Low Cholesterol, Low Sodium and Diabetic, Carb Controlled
Activity: Other activity
Additional Activity: WBAT LLE
Blood Work: CBC, BMP and Magnesium in 2 to 3 days
Activity Restrictions/Additional Instructions:
Consider outpatient Brain MRI if appropriate given patient's falls
Referrals:
Fissel,Jr S., MD [Family Provider, Family Practice] - in less than 1 week
Referral Note: Hospitalization Follow-Up
Prescriptions:
New
tramadol 50 mg Tablet
25 mg PO Q6HPRN PRN (Reason: severe pain) Qty: 7 0RF
Continued
multivitamin Tablet
1 tab PO DAILY
metformin 500 mg tablet
1,000 mg PO BID@0800,1700
cyanocobalamin (vitamin B-12) 1,000 mcg Tablet
1,000 mcg PO DAILY Qty: 0
ascorbic acid (vitamin C) [Vitamin C] 500 mg Tablet
500 mg PO DAILY Qty: 0
ferrous sulfate 325 mg (65 mg iron) Tablet
325 mg PO DAILY
aspirin 81 mg Tablet,Chewable
81 mg PO DAILY
lisinopril 5 mg tablet
5 mg PO DAILY
cholecalciferol (vitamin D3) [Vitamin D3] 25 mcg (1,000 unit) Tablet
25 mcg PO DAILY Qty: 0
omega 7-myk-uxe-fish oil [Fish Oil] 1,000 mg (120 mg-180 mg) Capsule
1 cap PO DAILY
atorvastatin [Lipitor] 20 mg Tablet
20 mg PO DAILY
docusate sodium 100 mg Capsule
100 mg PO BID Qty: 30 0RF
sennosides [Senna Lax] 8.6 mg Tablet
17.2 mg PO BID Qty: 30 0RF
glipizide 5 mg tablet
5 mg PO BID AT 0800,1700
Discontinued
oxycodone 5 mg Tablet
5 mg PO Q4HPRN PRN (Reason: mild pain) Qty: 20 0RF
tramadol 50 mg tablet
50 mg PO Q8H PRN (Reason: Pain) Qty: 14 0RF
Discharge Orders:
Discharge Patient (As Directed); Ordered 06/01/25
Ordered By: Joey Sarabia
Discharge Date and Time
Discharge Date/Time: 06/01/25 14:39
Print Language: MAURITIAN
[2025-06-01] MEDS: NOVOLOG FLEXPEN-LOW RESISTANCE 1 UNITS SC (13:55)
== END 2025-06-01 14:39 | DRG 536 ==
LOC: 2 SOUTH 00:02
PROVIDERS: ADMITTING PHYSICIAN Internal Medicine; ATTENDING PHYSICIAN Hospitalist; CONSULT PHYSICIAN Orthopaedic Surgery; EMERGENCY PHYSICIAN Emergency Medicine; FAMILY PHYSICIAN Family Medicine
DX: S72.115A Nondisplaced fracture of greater trochanter of left femur, initial encounter for closed fracture (principal); W19.XXXA Unspecified fall, initial encounter; R29.6 Repeated falls; E11.9 Type 2 diabetes mellitus without complications; E83.42 Hypomagnesemia; I10 Essential (primary) hypertension; Z79.84 Long term (current) use of oral hypoglycemic drugs; D50.9 Iron deficiency anemia, unspecified; Z79.82 Long term (current) use of aspirin; E78.5 Hyperlipidemia, unspecified
CPT/HCPCS: 70450; 72192; 73502; 80048; 80053; 82040; 82306; 82550; 82607; 82962; 83735; 84443; 84484; 85025; 85027; 93005; 93306; 96361; 96372; 96374; 97162; 97167; 97530; 97535; 99285

== ENCOUNTER 2025-07-20 12:40 | Inpatient (IN) | payer MEDICARE, SELFPAY ==
[2025-07-20] VITALS (15 sets, daily range): BP systolic 96–142; BP diastolic 56–68
--- NOTE | 2025-07-20 09:45 | ED.GENMED ---
History of Present Illness
General
Chief Complaint: Musculo-Skeletal Complaint
Time Seen by Provider: 07/20/25 09:08
History of Present Illness
History of Present Illness:
79-year-old male with history of high blood pressure and diabetes presenting to the emergency department with known left femur fracture. Patient had a fall at the beginning of May, was found to have a nondisplaced fracture to the greater
trochanter of the left femur. At that time, orthopedics had recommended nonoperative intervention, rehab. Patient has been getting rehabilitation and has been doing well with rehab. Yesterday, patient sat down on the ground and got up. Denies
any increase in pain, however in discussion with orthopedics, decided to get a repeat CT of his hip. Patient had CT yesterday which showed worsening displacement of his fracture, so it was recommended that he come to the hospital for operative
intervention. Patient denies any increase in pain, numbness or tingling to the extremity. Denies any additional acute medical complaints such as chest pain, difficulty breathing, fever
Past History
Past History
ED Past Medical History: NIDDM and Other (Cataracts)
ED Past Surgical History: Orthopedic
Phy Exam
Physical Exam
Physical Exam:
General: Well-appearing, no clinical signs of dehydration, nontoxic and in no acute distress
HEENT: protecting airway
Neck: appears supple
CV: Normal heart rate, regular rhythm
Resp: No accessory muscle use, no increased work of breathing, lungs clear to auscultation bilaterally
Abd: no distension
Extremities: No deformities, no swelling. No significant tenderness to the left hip with range of motion grossly intact.
Neuro: alert, no focal neurologic deficit
: deferred
Rectal: deferred
Psych: Normal affect
Skin: Intact
Course
Orders/Labs/Results
Orders:
Orders
07/20/25 Breakfast
NPO
Allow oral meds: Yes
Allow clear liquids: No
NPO with Ice Chips: No
07/20/25 09:22
Type+Screen Routine
Electrocardiogram (*1) Urgent
Reason for Study: PreOp
EKG- Treatment ONCE
Complete Blood Count/With Diff Urgent
Comprehensive Metabolic Panel Urgent
PTT Urgent
Prothrombin Time Urgent
07/20/25 09:24
ORTHOPEDIC CONSULT Urgent
Consulting Provider: Niall Borja
Was physician already notified: Yes
07/20/25 12:00
CeFAZolin 2 GRAM [Ancef] 2 grams in 10 ml IV PRE PROCEDURE
Vital Signs
Initial and Last Documented VS:
Initial Vital Signs
Temp Pulse Resp BP Pulse Ox
98.7 F 75 18 131/57 97
07/20/25 08:46 07/20/25 08:46 07/20/25 08:46 07/20/25 08:46 07/20/25 08:46
Last Documented Vital Signs
Temp Pulse Resp BP Pulse Ox
98.7 F 75 18 131/57 97
07/20/25 08:46 07/20/25 08:46 07/20/25 08:46 07/20/25 08:46 07/20/25 09:52
MDM/Problems Addressed
MDM/Problems Addressed:
79-year-old male presenting with known left hip fracture, sent in by orthopedics for surgery. Vital signs are normal.
On exam patient is resting comfortably, no acute distress, no present pain discomfort. On review of imaging, patient had a CT yesterday which showed worsening displacement of known left hip fracture. Orthopedics is aware, will come down for
patient with plan for operative management this afternoon. Did discuss with hospitalist. Plan for screening laboratory analysis and EKG for preop planning
*Pulse Oximetry
SaO2: 97
Oxygen Mode of Delivery: Room air
Patient hypoxic: no
*Critical Care Note
Total Time (30-74mins, 75-104mins- exclusive of procedures): Not Applicable
ED Attending Note
-
Portions of this chart may have been created with voice recognition software.� Occasional wrong word or��sound alike� substitutions may have occurred due to the inherent limitations of voice recognition software.
Discharge Plan
Departure
Patient Disposition: Admit
Date of Disposition: 07/20/25
Time of Disposition: 09:35
Presentation/result/management discussed w/ accepting MD/DO: Hospitalist
Patient with high blood pressure during this ER visit?: No
Condition: Good
Discharge Problem:
Closed fracture of greater trochanter of femur
Prescriptions:
No Action
multivitamin Tablet
1 tab PO DAILY
metformin 500 mg tablet
1,000 mg PO BID@0800,1700
cyanocobalamin (vitamin B-12) 1,000 mcg Tablet
1,000 mcg PO DAILY Qty: 0
ascorbic acid (vitamin C) [Vitamin C] 500 mg Tablet
500 mg PO DAILY Qty: 0
ferrous sulfate 325 mg (65 mg iron) Tablet
325 mg PO DAILY
aspirin 81 mg Tablet,Chewable
81 mg PO DAILY
lisinopril 5 mg tablet
5 mg PO DAILY
cholecalciferol (vitamin D3) [Vitamin D3] 25 mcg (1,000 unit) Tablet
25 mcg PO DAILY Qty: 0
omega 0-vhp-kvj-fish oil [Fish Oil] 1,000 mg (120 mg-180 mg) Capsule
1 cap PO DAILY
atorvastatin [Lipitor] 20 mg Tablet
20 mg PO DAILY
docusate sodium 100 mg Capsule
100 mg PO BID Qty: 30 0RF
sennosides [Senna Lax] 8.6 mg Tablet
17.2 mg PO BID Qty: 30 0RF
glipizide 5 mg tablet
5 mg PO BID AT 0800,1700
tramadol 50 mg Tablet
25 mg PO Q6HPRN PRN (Reason: severe pain) Qty: 7 0RF
Interventions
Interventions:
*Risk Screen - Suicide Last Done: 07/20/25 08:46
*General Assessment Last Done: 07/20/25 09:40
*Neglect/Abuse Screening Last Done: 07/20/25 08:46
*ED- Fall Risk Assessment Last Done: 07/20/25 09:39
*ED COVID-19 Vaccine History Last Done: 07/20/25 09:39
ED-Musculoskeletal Assessment Last Done: 07/20/25 09:48
Discharge Date and Time
Print Language: ESTONIAN
--- NOTE | 2025-07-20 09:50 | W.PN.UPDATE ---
Update Note
Progress Note Update
Full H&P Pending
Patient seen and evaluated by Orthopedic surgery in ED. Patient's daughter Grazyna at bedside. Plan for LEFT hip gamma nail today under the direction of Dr. Borja. Patient to remain NPO. NWB to LLE. T+S requested. Chel TURNER. Surgical and blood
consents obtained and with OR front desk manager. All questions answered.
[2025-07-20 10:05] LABS: Hematocrit 30.4 % (39.0-52.0); Hemoglobin 9.9 g/dL (13.0-18.0); Mean Corp Hgb Conc. 32.6 g/dL (33.0-37.0); Mean Corpuscular Volume 97.1 fL (80.0-94.0); Nucleated Red Blood Cells % 0 % (-); Platelet Count 279 10^3/uL (130-400); Red Cell Dist. Width 16.6 % (11.5-14.5)
[2025-07-20 10:12] LABS: INR 1.01; PT 13.6 Sec (11.4-14.6)
[2025-07-20 10:13] LABS: APTT 30.1 Sec (23.4-35.0)
--- NOTE | 2025-07-20 10:14 | HPS.HSE ---
Addendum entered and electronically signed by Jay Jhaveri MD 07/20/25 13:08:
I personally performed a history and physical exam of the patient and discussed management with the resident. I reviewed the resident's note and agree with the documented findings and plan of care HPI/CC.
79-year-old male with past medical history of hypertension, diabetes, anemia instructed by orthopedics today to come to the hospital for displaced noncomminuted fracture of left intertrochanteric femur. Plan for or today by orthopedics. Okay to
proceed for surgery. Denies chest pain, shortness of breath. PT/OT post OR per ortho. pharm DVTppx post OR per ortho
Displaced noncomminuted fracture of left intertrochanteric femur with inferior extension into the subtrochanteric region
likely 2/2 fall
Ortho following, plan 4 OR today
Plan is to go perform gamma nail fixation.
NPO
EKG withleft anterior fascicular block, bifascicular block. Denies any chest pain, shortness of breath
NSQIP risk-11.9% intermediate risk with predicted length of hospital stay at 5 days.
Echo obtained in May showed mild concentric left ventricular hypertrophy with EF of 60 to 65%.
IV morphine for pain control.
Type 2 diabetes mellitus-
Metformin and glipizide on hold.
Low resistance sliding scale and Accu-Cheks.
Essential hypertension-
Lisinopril
Monitor blood pressure.
Renal insufficiency
cr 1.1
Elevated from baseline-0.9
Likely secondary to dehydration.
Gentle IV hydration.
Anemia-chronic, macrocytic.
monitor
DVT prophylaxis-
Pneumatic compression sleeves
CODE STATUS-
Full code.
General: No Apparent Distress
HEENT: Hearing Impaired; No Moist mucous membranes
Respiratory: Clear; No Wheezes, Rales, Rhonchi or Crackles
Cardiac: S1/S2 and Regular Rhythm; No Murmur, Rub or Gallop
GI: Soft, Non Tender, Non Distended and Normal Bowel Sounds
Musculoskeletal: No Edema
Neuro: AO x 3 and No Motor Deficits
I spent a total of 64 minutes with the patient or on the floor. More than 50% of this time involved counseling and coordination of care.
Original Note:
Family Physician
-
Family Physician: Jr Almanzar
Chief Complaint
-
Hip fracture
History of Present Illness
79-year-old male with PMHx significant for HTN, type II DM, hyperlipidemia, iron deficiency anemia presents to the ER after follow-up with his orthopedics in the p.m. yesterday for a known left intertrochanteric femur fracture. Patient had a
mechanical fall in early May, was diagnosed with nondisplaced intertrochanteric fracture of the left femur, was admitted to the [facility]. Orthopedics recommended rehab and nonoperative intervention back then, and patient has been doing well with the
rehab. Yesterday, he went for a follow-up visit and orthopedics appointment, thought there was a chair behind him and tried to sit down, and sat on the floor. After sitting on the floor orthopedics decided to obtain a repeat CT that showed
evidence for displacement of his fracture, hence he was recommended to go to the ER with the plan of getting a gamma nail fixation. Patient has been n.p.o since midnight yesterday per instruction from orthopedics office.
Today he denies having any shortness of breath, chest pain, orthopnea, PND, fever, chills, syncope or near syncopal episodes or focal weakness or paresthesias.
His baseline is doing 3 mets before the initial fracture.
His baseline mobility status was using a cane.
Upon arrival to the ER-his vitals or 131/57, 75, 18, T-98.7, satting 98% on room air.
Medical History
Past Medical History
Past Medical History: Reports Other (HTN, NIDDM, hyperlipidemia, iron deficiency anemia, cataracts.)
Past Surgical History: Reports Other (None)
Social History
Tobacco: Non-smoker
Alcohol: None
Drug: None
Personal: Single
Living: Alone
Employment: Retired
Family History
Family History: Not pertinent
Allergies / Home Medications
Allergies reflects when Allergies were last updated in [employer].
Home Medications with original date entered in [employer]
Allergy/Medication List:
Allergies
Allergy/AdvReac Type Severity Reaction Status Date / Time
No Known Allergies Allergy Verified 07/20/25 08:46
Home Medications
aspirin 81 mg chewable tablet 81 mg PO DAILY Blood Clot Prevention/Tx 04/18/23
cholecalciferol (vitamin D3) 25 mcg (1,000 unit) tablet (Vitamin D3) 25 mcg PO DAILY Supplement ##0 04/18/23
cyanocobalamin (vitamin B-12) 1,000 mcg tablet 1,000 mcg PO DAILY Supplement ##0 04/18/23
ferrous sulfate 325 mg (65 mg iron) tablet 325 mg PO DAILY Supplement 04/18/23
lisinopril 5 mg tablet 5 mg PO DAILY Blood Pressure 04/18/23
metformin 500 mg tablet 1,000 mg PO BID@0800,1700 Diabetes 04/18/23
multivitamin 1 tab PO DAILY Supplement 04/18/23
omega 4-jfx-tyh-fish oil 1,000 mg (120 mg-180 mg) capsule (Fish Oil) 1 cap PO DAILY Supplement 04/18/23
atorvastatin 20 mg tablet (Lipitor) 20 mg PO DAILY High Cholesterol 09/08/23
acetaminophen 325 mg tablet (Tylenol) 650 mg PO BID 07/20/25
glipizide 10 mg tablet 10 mg PO BID@0800,1700 07/20/25
tramadol 50 mg tablet 25 mg PO BID 07/20/25
Review of Systems
-
History Source: Patient
Constitutional: Reports No Symptoms
EENT: Reports No Symptoms
Respiratory: Reports No Symptoms
Cardiac: Reports No Symptoms
Abdomen/GI: Reports No Symptoms
: Reports No Symptoms
Musculoskeletal: Reports No Symptoms
Skin: Reports No Symptoms
Neurological: Reports No Symptoms
Endocrine: Reports No Symptoms
Hematologic/Lymphatic: Reports No Symptoms
Psych: Reports No Symptoms
Physical Exam
Vital Signs
Vital Signs
Temp Pulse Resp BP Pulse Ox
98.7 F 75 18 131/57 97
07/20/25 08:46 07/20/25 08:46 07/20/25 08:46 07/20/25 08:46 07/20/25 09:52
Physical Exam
General: No Apparent Distress and Other (pallor present)
HEENT: Hearing Impaired; No Moist mucous membranes
Respiratory: Clear; No Wheezes, Rales, Rhonchi or Crackles
Cardiac: S1/S2 and Regular Rhythm; No Murmur, Rub or Gallop
GI: Soft, Non Tender, Non Distended and Normal Bowel Sounds
Genito-urinary: Deferred by me
Musculoskeletal: No Cyanosis and No Edema
Neuro: AO x 3 and No Motor Deficits
Laboratory Results
-
07/20/25 09:51
Abnormal Lab Results
07/20/25
09:51
RBC 3.13 L
Hgb 9.9 L
Hct 30.4 L
MCV 97.1 H
MCH 31.6 H
MCHC 32.6 L
RDW 16.6 H
MPV 11.9 H
Absolute Monos (auto) 0.7 H
Monocytes % 10.9 H
BUN 23 H
Glucose 182 H
Data Reviewed
-
CT Scan: Image Personally Visualized and interpreted, Report Reviewed by me and Discussed with Physician
Medical Tests (Nuc Med, Echo, EKG etc): Image Personally Visualized and interpreted, Report Reviewed by me and Discussed with Physician
Impression/Plan
-
IMPRESSION: 79-year-old male patient is admitted to the hospital for management of displaced comminuted fracture of left intertrochanter extending into the subtrochanteric region.
PLAN:
Displaced noncomminuted fracture of left intertrochanteric femur with inferior extension into the subtrochanteric region
Ortho consulted, on board.
Plan is to go perform gamma nail fixation.
N.p.o. since midnight.
EKG changes-left anterior fascicular block, bifascicular block.
NSQIP risk-11.9% intermediate risk with predicted length of hospital stay at 5 days.
Baseline-3 METS before the fracture.
Echo obtained in May showed mild concentric left ventricular hypertrophy with EF of 60 to 65%.
IV morphine for pain control.
Advance diet after the procedure, PT and OT consulted.
Type 2 diabetes mellitus-
Metformin and glipizide on hold.
Will resume medications after initiation of oral diet.
Low resistance sliding scale and Accu-Cheks.
Essential hypertension-
Lisinopril 5 mg on hold.
Monitor blood pressure.
BUN, creatinine-
Today at 23 and 1.1
Elevated from baseline-0.9, 19.
Likely secondary to dehydration.
Gentle IV hydration.
Anemia-chronic, macrocytic.
Likely a confluence of bone marrow dysfunction, iron deficiency.
DVT prophylaxis-
Pneumatic compression sleeves
CODE STATUS-
Full code.
[2025-07-20 10:20] LABS: ALT (SGPT) 18 U/L (0-50); AST (SGOT) 17 U/L (17-59); Albumin 4.5 g/dl (3.5-5.0); Alkaline Phosphatase 69 U/L (38-126); Blood Urea Nitrogen 23 mg/dl (9-20); Calcium 9.3 mg/dl (8.4-10.2); Carbon Dioxide 26 mmol/L (22-30); Chloride 104 mmol/L (98-107); Glucose 182 mg/dl (70-99); Potassium 5.0 mmol/L (3.5-5.1); Sodium 139 mmol/L (135-145); Total Protein 6.9 g/dl (6.3-8.2); eGFR > 60.00
--- NOTE | 2025-07-20 11:15 | CON.ORTHO ---
Consultation
-
Date/Time Consultation Requested: 07/20/2025 @ 9:24 AM
Date/Time Consultation Performed: 07/20/2025 @ 9:35 AM
Requesting Provider: Dr. Debra Akers DO
Performing Provider: Derek Bush PA-C for Dr. Niall Borja MD
Reason for Consultation: Left Hip Fracture
Consultation - Orthopedics
History
Orthopedic Surgery Note
CC: Left Hip Pain
HPI: The patient is an 79-year-old male with a past medical history significant for NIDDM, Cataracts, Essential HTN, Hyperlipidemia, and Iron deficiency anemia who presented to [facility] via his daughter Grazyna ([phone]) with left hip pain. The
patient unfortunately sustained multiple falls around this past May. He was subsequently admitted to [facility] and x-rays and a CT scan was performed, which revealed comminuted fracture involving the greater trochanter of the left
proximal femur. At that time, nonoperative management was recommended with PT/OT consultation. The patient was seen as an outpatient yesterday in our office following up for his greater trochanter fracture. I was informed by his son Will that he
had sustained another fall earlier in the day at the [employer] office. Radiographs were obtained in the office, and there were some concerns regarding the possibility of an additional acute fracture. The patient was sent for CT scan of the left
hip. CT scan images were reviewed with Dr. Broja, and recommendation was made for operative intervention. At rest, the patient denies any significant pain. He endorses increased discomfort with weightbearing activities. He was informed to
present to [facility] ED for admission to the medical service with an Orthopedic surgery consultation. He denies any paresthesias. He denies any anticoagulation use. He is ambulating with assistance of a walker.
PMH/PSH: NIDDM, Cataracts, Essential HTN, Hyperlipidemia, and Iron deficiency anemia.
Medications: Reviewed.
Family History: Family history was reviewed. Noncontributory.
Social history: Nonsmoker, no illicit drugs. Lives at home with his .
Exam
General appearance: Pleasant. No acute distress.
Head: Normocephalic/atraumatic
Nose: No lesions or discharge.
Skin: No obvious rashes or open wounds
Lungs: No audible wheezing, no cough or sputum production
Musculoskeletal:
LLE:
Physical examination of the left hip does not reveal any obvious deformity, erythema, warmth, or ecchymosis. Skin is intact. There is slight tenderness with range of motion of his hip. There is tenderness to palpation over the greater
trochanteric region. No reproducible tenderness about the knee or ankle. Calf is soft and nontender to palpation. NVI distally.
Imaging:
CT Lower Ext W/o Iv Cont LT was performed at [facility] on 07/19/2025 and was made available for my review. Findings: The previously seen comminuted fracture of the left greater trochanter now shows displacement of fracture fragments.
However, the fracture lines are smooth and irregular consistent with a subacute fracture. There is a radiolucent line extending posteriorly and inferiorly from this fracture to the subtrochanteric region. Retrospectively, this is present
previously and not felt to represent an acute fracture. This is seen best on axial images 76 through 85 series 201. This corresponds to a radiolucent line in the subtrochanteric region on coronal image #57 series 202. On sagittal imaging, there
is the appearance of associated mild sclerotic margins suggesting subacute fracture. A prominent nutrient channel cannot be completely excluded. There are old healed bilateral inferior pubic rami fractures. There is a subacute fracture of the
sacrum seen best on the sagittal view at the S3/S4 level anteriorly. Fracture line is irregular and the margins are mildly sclerotic. This is best seen on sagittal image 84 series 203. Bowel loops are normal caliber. There is moderate
arthrosclerotic vascular disease. The bladder is well-distended. The prostate gland is mildly enlarged. Impression: On independent interpretation, there is a comminuted displaced left greater trochanteric fracture with extension inferiorly into
the subtrochanteric region. Outpatient radiographs of the left hip and CT scan were reviewed with Dr. Borja.
Assessment: 79-year-old male with a LEFT comminuted greater trochanteric fracture with extension inferiorly into the subtrochanteric region.
Plan:
1) Radiographs and CT scan reviewed with Dr. Borja.
2) Treatment options, including both nonoperative and operative approaches were discussed with the patient and his daughter Grazyna at length, and after thorough discussion, shared decision was to proceed with operative management. The risks,
benefits, potential complications and expected post-operative course were reviewed. We will plan for a LEFT hip gamma nail this afternoon under the direction of Dr. Borja as long as cleared to proceed.
3) Surgical and blood consents were obtained and left with the OR helpdesk administrator.
4) Ancef on-call to the OR. Patient will remain NPO. Remain NWB to LLE until post-op. He is to remain on bedrest for now. Continue with pain medications as needed. Type and screen requested. Hemoglobin this morning 9.9. Orthopedic surgery
will continue to follow along.
Allergies / Home Medications
Allergy/AdvReac Type Severity Reaction Status Date / Time
No Known Allergies Allergy Verified 07/20/25 08:46
�Medication �Instructions �Recorded
aspirin 81 mg chewable tablet 81 mg PO DAILY Blood Clot 04/18/23
Prevention/Tx
cholecalciferol (vitamin D3) 25 25 mcg PO DAILY Supplement ##0 04/18/23
mcg (1,000 unit) tablet (Vitamin
D3)
cyanocobalamin (vitamin B-12) 1,000 mcg PO DAILY Supplement ##0 04/18/23
1,000 mcg tablet
ferrous sulfate 325 mg (65 mg 325 mg PO DAILY Supplement 04/18/23
iron) tablet
lisinopril 5 mg tablet 5 mg PO DAILY Blood Pressure 04/18/23
metformin 500 mg tablet 1,000 mg PO BID@0800,1700 Diabetes 04/18/23
multivitamin 1 tab PO DAILY Supplement 04/18/23
omega 4-jnn-wtr-fish oil 1,000 mg 1 cap PO DAILY Supplement 04/18/23
(120 mg-180 mg) capsule (Fish Oil)
atorvastatin 20 mg tablet (Lipitor) 20 mg PO DAILY High Cholesterol 09/08/23
acetaminophen 325 mg tablet 650 mg PO BID 07/20/25
(Tylenol)
glipizide 10 mg tablet 10 mg PO BID@0800,1700 07/20/25
tramadol 50 mg tablet 25 mg PO BID 07/20/25
Vital Signs / Lab Results
Temp Pulse Resp BP Pulse Ox
98.7 F 75 18 138/68 96
07/20/25 08:46 07/20/25 08:46 07/20/25 08:46 07/20/25 10:00 07/20/25 10:45
07/20/25 09:51
07/20/25 09:51
[2025-07-20] MEDS: MORPHINE SULFATE 1 MG IV (11:37)
--- NOTE | 2025-07-20 12:13 | CM ---
CM reviewed chart and met with pt and daughter bedside in ED. Lives with his in split level home, 5 ANITA then additional 5 steps to Bedroom and full bath.
Independent in ADLs, personal care and ambulation at baseline. Used a cane prior to hip c in May, has been using RW since.
Also has shower chair and shower grab rails in home.
Confirms prescription coverage.
Current with [facility], [facility].
PCP: Jr Almanzar
Pharmacy: [facility] Livan Kahn
Anticipate discharge home with [facility], watch for needs.
[2025-07-20 16:00] LABS: Glucose - Point of Care 156 mg/dl (70-99)
[2025-07-20] MEDS: ASPIRIN 325 MG PO (17:47)
--- NOTE | 2025-07-20 18:14 | PTCARENOTE ---
1705 Pt arrived from PACU. Pt AAOX3. VSS. 2L O2 100%. 3 primaseals. Hip and thigh dressings with scant drainage. Oriented to room. call dsouza in place. bed locked and in lowest position.
[2025-07-20] MEDS: NSS 1000 IV (18:24)
[2025-07-20 18:27] LABS: Glucose - Point of Care 210 mg/dl (70-99)
[2025-07-20] MEDS: NOVOLOG FLEXPEN-LOW RESISTANCE 2 UNITS SC (18:40)
[2025-07-20] MEDS: ANCEF 5 IV (20:05)
[2025-07-20] MEDS: COLACE 100 MG PO (20:05)
[2025-07-20 21:27] LABS: Glucose - Point of Care 451 mg/dl (70-99)
[2025-07-20 22:12] LABS: Glucose 479 mg/dl (70-99)
[2025-07-20] MEDS: NOVOLOG FLEXPEN 6 UNITS SC (22:20)
--- NOTE | 2025-07-20 22:30 | PTCARENOTE ---
Patient's blood sugar- 479. Amie jackson made aware. 6unit novolog SQ given as ordered
[2025-07-21 00:26] LABS: Glucose - Point of Care 396 mg/dl (70-99)
[2025-07-21] MEDS: NOVOLOG FLEXPEN 5 UNITS SC (00:54)
[2025-07-21 03:07] LABS: Glucose - Point of Care 274 mg/dl (70-99)
[2025-07-21 04:07] VITALS: BP 125/60
[2025-07-21] MEDS: ANCEF 5 IV (04:14)
--- NOTE | 2025-07-21 06:56 | W.PN.ORTHO ---
Today's Communication / Plan
-
PT/OT
ASA/mechanical devices for DVT prophy
WBAT w walker
Home w VN vs SNF once medically stable
Skin clip removal 2 weeks post-op
Follow up with orthopedics 4 weeks post-op for xray
Assessment
.
Distal Motor Intact: Yes
Dressing:
Clean, dry and intact.
Plan
.
Surgery / Date: L hip gamma nail 07/20 Ritting
DVT Prophylaxis: Aspirin
Activity:
Out of bed.
PT/OT
Discharge Plan: SNF
Subjective
.
.:
Patient resting comfortably.
Vital Signs and Labs
.
Vital Signs and Labs:
Temp Pulse Resp BP Pulse Ox
98.3 F 75 14 125/60 95
07/21/25 04:07 07/21/25 04:07 07/21/25 04:07 07/21/25 04:07 07/21/25 04:07
PT 13.6 Sec (11.4-14.6) 07/20/25 09:51
INR 1.01 07/20/25 09:51
[2025-07-21 07:45] LABS: Hematocrit 24.8 % (39.0-52.0); Hemoglobin 8.2 g/dL (13.0-18.0)
[2025-07-21 07:50] VITALS: BP 114/58
[2025-07-21 08:06] LABS: Blood Urea Nitrogen 25 mg/dl (9-20); Calcium 9.1 mg/dl (8.4-10.2); Carbon Dioxide 25 mmol/L (22-30); Chloride 106 mmol/L (98-107); Glucose 220 mg/dl (70-99); Potassium 4.9 mmol/L (3.5-5.1); Sodium 137 mmol/L (135-145); eGFR > 60.00
[2025-07-21] MEDS: ASPIRIN 325 MG PO (08:27)
[2025-07-21] MEDS: MIRALAX 17 GRAMS TUBE (08:27)
[2025-07-21] MEDS: FEOSOL 325 MG PO (08:27)
[2025-07-21] MEDS: GLUCOTROL 10 MG PO ×2 (08:27→16:49)
[2025-07-21] MEDS: LIPITOR 20 MG PO (08:28)
[2025-07-21] MEDS: ZESTRIL PO (08:28)
[2025-07-21] MEDS: COLACE 100 MG PO ×2 (08:28→20:33)
[2025-07-21 08:36] LABS: Glucose - Point of Care 220 mg/dl (70-99)
[2025-07-21] MEDS: NOVOLOG FLEXPEN-LOW RESISTANCE 2 UNITS SC (08:36)
[2025-07-21 09:40] LABS: Glycohemoglobin (HgbA1c) 6.6 % (4.0-5.6)
[2025-07-21] MEDS: NSS 1000 IV (10:00)
[2025-07-21 10:01] VITALS: BP 143/70; PULSE 63; O2SAT 97; O2SAT 99
--- NOTE | 2025-07-21 10:50 | VNURNOTE ---
Chart reviewed. Patient is current with [facility]. Will continue to follow hospital course and DC plans.
--- NOTE | 2025-07-21 11:48 | W.PN.HOSP.TC ---
Today's Communication/Plan
-
Monitor vital signs and see plan
Continue with bladder scan
Check UA
Pain control
PT/OT
Aspirin per orthopedics
Assessment / Plan
Assessment / Plan
Displaced noncomminuted fracture of left intertrochanteric femur with inferior extension into the subtrochanteric region
likely 2/2 fall
Ortho following, status post L hip gamma nail
EKG withleft anterior fascicular block, bifascicular block. Denies any chest pain, shortness of breath
Echo obtained in May showed mild concentric left ventricular hypertrophy with EF of 60 to 65%.
Pain control
PT/OT
Weight-bear as tolerated with walker per orthopedics
Acute urinary retention
Check UA
Bladder scan
Type 2 diabetes mellitus-
Restart glipizide, hold metformin for now
Low resistance sliding scale and Accu-Cheks.
A1c 6.6
Essential hypertension-
Lisinopril
Monitor blood pressure.
Renal insufficiency
cr 1.1
Elevated from baseline-0.9
Likely secondary to dehydration.
Gentle IV hydration.
Anemia-chronic, macrocytic.
monitor
DVT prophylaxis-
Pneumatic compression sleeves, full dose aspirin
CODE STATUS-
Full code.
General: No Apparent Distress
HEENT: Hearing Impaired; No Moist mucous membranes
Respiratory: Clear; No Wheezes, Rales, Rhonchi or Crackles
Cardiac: S1/S2 and Regular Rhythm; No Murmur, Rub or Gallop
GI: Soft, Non Tender, Non Distended and Normal Bowel Sounds
Musculoskeletal: No Edema
Neuro: AO x 3 and No Motor Deficits
Anticipated Discharge: Within 24 hours
Subjective/Interval History
-
Date of Service: July 21, 2025
denies nausea
Objective Data
-
Labs:
Laboratory Results
07/21/25
06:52
Hgb 8.2 L
Hct 24.8 L
Sodium 137
Potassium 4.9
Chloride 106
Carbon Dioxide 25
BUN 25 H
Creatinine 1.1
Glucose 220 H
Calcium 9.1
Vital Signs:
Vital Signs
Temp Pulse Resp BP Pulse Ox
97.6 F 77 18 114/58 99
07/21/25 07:50 07/21/25 07:50 07/21/25 07:50 07/21/25 07:50 07/21/25 10:53
I&O
07/20/25 07/21/25 07/22/25
06:59 06:59 06:59
Intake Total 360 / 360
Output Total 1250 / 1250
Balance -890 / -890
[2025-07-21 11:54] VITALS: BP 109/58
[2025-07-21 11:54] LABS: Glucose - Point of Care 181 mg/dl (70-99)
[2025-07-21] MEDS: NOVOLOG FLEXPEN-LOW RESISTANCE 1 UNITS SC (11:56)
--- NOTE | 2025-07-21 14:28 | CM ---
Addendum entered by Manjula Khan RN 07/21/25 15:58:
CM spoke with the patient's daughter Grazyna via telephone. Per Grazyna, patient's spouse cooks and cleans in the home. Per Garzyna, the patient will need to be self sufficient to return to home. Patient's spouse has slight mental decline, but is
able to function appropriately. Grazyna confirmed that the patient is able to stay on the first level where there is a bathroom, but he would need to go up six steps to get to the kitchen for food. Per Grazyna, patient has been skipping meals due
to not going up to the kitchen to get his food. Discuss with the patient his daughter's concerns. Patient's daughter feels patient would best be served in SNF for rehab prior to transitioning back to home with resumption of VN services.
Original Note:
Reviewed the chart notes and spoke with the patient at the bedside. CM left voice message for patient's daughter to discuss supports in the home. PT/OT recommendation of SNF vs home with home health. Patient current with [facility]. CM continues to
be available to patient/family and is monitoring medical plan for needs at discharge.
Plan: Discharge plans will depend on the patient's progress.
[2025-07-21 15:30] VITALS: BP 131/52
[2025-07-21 16:44] LABS: Glucose - Point of Care 260 mg/dl (70-99)
[2025-07-21] MEDS: FLOMAX 0.4 MG PO (16:49)
[2025-07-21 17:18] LABS: Urine Character Clear (Clear)
[2025-07-21] MEDS: NOVOLOG FLEXPEN-LOW RESISTANCE 3 UNITS SC (17:42)
--- NOTE | 2025-07-21 21:34 | PTCARENOTE ---
Pt BG @ 2134 440, retake was 435. Venous BG ordered and obtained. Result 435. TT JOCELYNN Castillo. 6 units of Novolog ordered and administered. Care ongoing.
[2025-07-21 21:37] LABS: Glucose - Point of Care 440 mg/dl (70-99)
[2025-07-21 21:38] LABS: Glucose - Point of Care 435 mg/dl (70-99)
--- NOTE | 2025-07-21 21:45 | PTCARENOTE ---
Pt voided 175cc in urinal, PVR 570cc. JOCELYNN Castillo notified and aware. 14fr keith catheter inserted d/t acute retention per protocol. D/t be removed 07/24/2025 @ 0600. Pt tolerated procedure well, stat lock applied, clear yellow urine draining. Care
ongoing.
--- NOTE | 2025-07-21 21:50 | PTCARENOTE ---
Indwelling urinary catheter inserted for acute urinary retention per [employer] order.
--- NOTE | 2025-07-21 22:10 | W.PN.UPDATE ---
Update Note
Progress Note Update
sagar
[2025-07-21 22:31] LABS: Glucose 435 mg/dl (70-99)
[2025-07-21] MEDS: NOVOLOG FLEXPEN 6 UNITS SC (23:11)
[2025-07-21 23:15] VITALS: BP 135/64
[2025-07-22] MEDS: NSS 1000 IV (00:24)
[2025-07-22 02:27] LABS: Glucose - Point of Care 240 mg/dl (70-99)
[2025-07-22 07:08] LABS: Hematocrit 21.1 % (39.0-52.0); Hemoglobin 7.2 g/dL (13.0-18.0); Mean Corp Hgb Conc. 34.1 g/dL (33.0-37.0); Mean Corpuscular Volume 95.9 fL (80.0-94.0); Nucleated Red Blood Cells % 0.2 % (-); Platelet Count 210 10^3/uL (130-400); Red Cell Dist. Width 16.1 % (11.5-14.5)
--- NOTE | 2025-07-22 07:14 | W.PN.ORTHO ---
Today's Communication / Plan
-
Appreciate the primary team, continue treatment
Dispo per CM, ? SNF?
Continue WBAT B/L LEs on walker
PT/OT
ASA 325mg daily x 4 weeks, mechanical devices for DVT ppx
Dressing to remain 7-10 days
Pain control, ice to hip, avoid narcs if possible
Corrigan out 2 weeks (office or SNF)
If abdon out at SNF outpatient Ortho follow-up 4 weeks
Assessment
.
Distal Motor Intact: Yes
Dressing:
Clean, dry and intact. Primaseal in place left hip
Assessment:
POD#2 Left hip Gamman nail
Overall doing weel per RN
Plan
.
Surgery / Date: Left Hip Gamma Jul 22 (Ritting)
DVT Prophylaxis: Aspirin
Activity:
Out of bed. WBAT B/L LEs on walker
PT/OT
Discharge Plan: SNF and Other (appreciate )
Subjective
.
.:
Patient resting comfortably. Did not respond to verbal stim therefore I DND
Vital Signs and Labs
.
Vital Signs and Labs:
Lab Results
07/22/25 05:38
Temp Pulse Resp BP Pulse Ox
98.9 F 90 17 135/64 97
07/21/25 23:15 07/21/25 23:15 07/21/25 23:15 07/21/25 23:15 07/21/25 23:15
PT 13.6 Sec (11.4-14.6) 07/20/25 09:51
INR 1.01 07/20/25 09:51
[2025-07-22 07:16] LABS: Blood Urea Nitrogen 20 mg/dl (9-20); Calcium 8.7 mg/dl (8.4-10.2); Carbon Dioxide 25 mmol/L (22-30); Chloride 109 mmol/L (98-107); Glucose 175 mg/dl (70-99); Potassium 4.4 mmol/L (3.5-5.1); Sodium 138 mmol/L (135-145); eGFR > 60.00
[2025-07-22 08:05] VITALS: BP 132/64
[2025-07-22] MEDS: GLUCOTROL 10 MG PO ×2 (08:57→16:46)
[2025-07-22] MEDS: LIPITOR 20 MG PO (08:57)
[2025-07-22] MEDS: MIRALAX 17 GRAMS TUBE (08:57)
[2025-07-22] MEDS: ASPIRIN 325 MG PO (08:57)
[2025-07-22] MEDS: ZESTRIL 5 MG PO (08:57)
[2025-07-22] MEDS: FLOMAX 0.4 MG PO (08:57)
[2025-07-22] MEDS: COLACE 100 MG PO (08:57)
[2025-07-22] MEDS: FEOSOL 325 MG PO (08:57)
[2025-07-22 09:16] LABS: Glucose - Point of Care 178 mg/dl (70-99)
[2025-07-22] MEDS: NOVOLOG FLEXPEN-LOW RESISTANCE 1 UNITS SC (09:44)
[2025-07-22 10:45] LABS: Hematocrit 21.4 % (39.0-52.0); Hemoglobin 7.2 g/dL (13.0-18.0)
[2025-07-22 11:59] LABS: Glucose - Point of Care 226 mg/dl (70-99)
--- NOTE | 2025-07-22 12:10 | W.PN.HOSP.TC ---
Today's Communication/Plan
-
Monitor vital signs and see plan
Check H&H later today
Renal/bladder ultrasound
Maintain Keith for now
Continue flomax
Assessment / Plan
Assessment / Plan
Displaced noncomminuted fracture of left intertrochanteric femur with inferior extension into the subtrochanteric region
likely 2/2 fall
Ortho following, status post L hip gamma nail
EKG withleft anterior fascicular block, bifascicular block. Denies any chest pain, shortness of breath
Echo obtained in May showed mild concentric left ventricular hypertrophy with EF of 60 to 65%.
Pain control
PT/OT. Likely will benefit from SNF
Weight-bear as tolerated with walker per orthopedics
Acute urinary retention
UA without UTI
Bladder scan
Check renal/bladder ultrasound
Now with Keith catheter overnight,monitor
Type 2 diabetes mellitus-
Continue glipizide,metformin
Low resistance sliding scale and Accu-Cheks.
A1c 6.6
Essential hypertension-
Lisinopril
Monitor blood pressure.
Renal insufficiency
Now resolved
Elevated from baseline-0.9
DC further IVF
Anemia-chronic, macrocytic.
monitor, suspect some acute blood loss as well given recent surgery and hemodilution
Check iron panel, B12, folate
Monitor
DVT prophylaxis-
Pneumatic compression sleeves, full dose aspirin
CODE STATUS-
Full code.
General: No Apparent Distress
HEENT: Hearing Impaired; No Moist mucous membranes
Respiratory: Clear; No Wheezes, Rales, Rhonchi or Crackles
Cardiac: S1/S2 and Regular Rhythm; No Murmur, Rub or Gallop
GI: Soft, Non Tender, Non Distended and Normal Bowel Sounds
: + keith
Musculoskeletal: No Edema
Neuro: AO x 3 and No Motor Deficits
Anticipated Discharge: Within 24 hours
Subjective/Interval History
-
Date of Service: July 22, 2025
Denies pain
Objective Data
-
Labs:
Laboratory Results
07/22/25 07/22/25
05:38 10:33
WBC 9.2
Hgb 7.2 L 7.2 L
Hct 21.1 L 21.4 L
Plt Count 210 D
Sodium 138
Potassium 4.4
Chloride 109 H
Carbon Dioxide 25
BUN 20
Creatinine 0.9
Glucose 175 H
Calcium 8.7
Vital Signs:
Vital Signs
Temp Pulse Resp BP Pulse Ox
98.3 F 80 16 132/64 96
07/22/25 08:05 07/22/25 08:05 07/22/25 08:05 07/22/25 08:05 07/22/25 08:05
I&O
07/21/25 07/22/25 07/23/25
06:59 06:59 06:59
Intake Total 360 / 360 1080 / 1080
Output Total 1250 / 1250 1700 / 1700
Balance -890 / -890 -620 / -620
[2025-07-22] MEDS: GLUCOPHAGE 1000 MG PO ×2 (12:12→16:45)
[2025-07-22] MEDS: NOVOLOG FLEXPEN-LOW RESISTANCE 2 UNITS SC (12:12)
[2025-07-22] MEDS: PROTONIX 40 MG PO (12:16)
[2025-07-22 12:55] VITALS: BP 116/58; PULSE 85; O2SAT 96
[2025-07-22 13:30] LABS: Iron 23 ug/dl (49-181)
[2025-07-22 13:39] LABS: Total Iron Binding Capacity 244 ug/dl (261-462)
--- NOTE | 2025-07-22 15:38 | CM ---
Reviewed the chart notes. Patient now with keith. Agreeable to SNF. Referral sent to [facility] where patient has previously been. No precert required. CM continues to be available to patient/family and is monitoring medical plan for needs at
discharge.
Plan: Discharge to SNF/rehab once bed secured. No precert required.
[2025-07-22 15:52] LABS: Ferritin 236.0 ng/ml (17.9-464.0)
[2025-07-22 16:24] VITALS: BP 144/80; PULSE 109; O2SAT 98
[2025-07-22 16:25] LABS: Folate 6.1 ng/ml (2.76-20); Vitamin B12 670 pg/ml (239-931)
[2025-07-22 16:42] LABS: Glucose - Point of Care 297 mg/dl (70-99)
[2025-07-22] MEDS: NOVOLOG FLEXPEN-LOW RESISTANCE 3 UNITS SC (16:46)
[2025-07-22] MEDS: COLACE PO (20:45)
[2025-07-22 21:15] LABS: Glucose - Point of Care 224 mg/dl (70-99)
[2025-07-22 21:27] LABS: Hematocrit 22.8 % (39.0-52.0); Hemoglobin 7.5 g/dL (13.0-18.0)
[2025-07-22 23:12] VITALS: BP 148/72
[2025-07-23] VITALS (7 sets, daily range): BP systolic 113–142; BP diastolic 59–72; PULSE 98; O2SAT 96
[2025-07-23 06:21] LABS: Hematocrit 21.4 % (39.0-52.0); Hemoglobin 7.0 g/dL (13.0-18.0); Mean Corp Hgb Conc. 32.7 g/dL (33.0-37.0); Mean Corpuscular Volume 96.8 fL (80.0-94.0); Nucleated Red Blood Cells % 0.2 % (-); Platelet Count 203 10^3/uL (130-400); Red Cell Dist. Width 16.3 % (11.5-14.5)
[2025-07-23 06:36] LABS: Blood Urea Nitrogen 16 mg/dl (9-20); Calcium 8.3 mg/dl (8.4-10.2); Carbon Dioxide 26 mmol/L (22-30); Chloride 107 mmol/L (98-107); Glucose 168 mg/dl (70-99); Potassium 4.1 mmol/L (3.5-5.1); Sodium 137 mmol/L (135-145); eGFR > 60.00
[2025-07-23 07:47] LABS: Glucose - Point of Care 187 mg/dl (70-99)
[2025-07-23] MEDS: PROTONIX 40 MG PO (08:01)
[2025-07-23] MEDS: FEOSOL 325 MG PO (08:01)
[2025-07-23] MEDS: GLUCOPHAGE 1000 MG PO ×2 (08:01→17:38)
[2025-07-23] MEDS: ASPIRIN 325 MG PO (08:02)
[2025-07-23] MEDS: LIPITOR 20 MG PO (08:02)
[2025-07-23] MEDS: ZESTRIL 5 MG PO (08:02)
[2025-07-23] MEDS: NOVOLOG FLEXPEN-LOW RESISTANCE 1 UNITS SC (08:02)
[2025-07-23] MEDS: FLOMAX 0.4 MG PO (08:02)
[2025-07-23] MEDS: GLUCOTROL 10 MG PO ×2 (08:02→17:38)
[2025-07-23] MEDS: COLACE PO (08:02)
--- NOTE | 2025-07-23 09:24 | CM ---
Chart reviewed. Plan is for SNF at d/c. [facility] accepted
Per hospitalist, patient's hgb is 7 will receive blood infusion today, possibly can d/c after, will let CM know for sure.
Confirmed w/ [facility] patient has a bed today if ready
Updated spouse via phone
IMM verbally reviewed, copy provided, copy on chart
Ambulance transport forms on chart
[facility]
Report: [phone]

Plan: [facility]
--- NOTE | 2025-07-23 11:28 | W.PN.HOSP.TC ---
Addendum entered and electronically signed by Jay Jhaveri MD 07/23/25 15:29:
Hemoglobin improved to 8.5 after blood transfusion. Discharge today
Time of discharge 38 minutes
Original Note:
Today's Communication/Plan
-
Monitor vitals
See plan
Hemoglobin 7, transfuse 1 unit PRBC and recheck
Pain control
Maintain Keith
Possible discharge to rehab today or tomorrow
Assessment / Plan
Assessment / Plan
Displaced noncomminuted fracture of left intertrochanteric femur with inferior extension into the subtrochanteric region
likely 2/2 fall
Ortho following, status post L hip gamma nail
EKG with left anterior fascicular block, bifascicular block. Denies any chest pain, shortness of breath
Echo obtained in May showed mild concentric left ventricular hypertrophy with EF of 60 to 65%.
Pain control
PT/OT. Likely will benefit from SNF
Weight-bear as tolerated with walker per orthopedics
Acute urinary retention
UA without UTI
Bladder scan
renal/bladder ultrasound without any hydronephrosis
Now with Keith catheter,monitor
Type 2 diabetes mellitus-
Continue glipizide,metformin
Low resistance sliding scale and Accu-Cheks.
A1c 6.6
Essential hypertension-
Lisinopril
Monitor blood pressure.
Renal insufficiency
Now resolved
Elevated from baseline-0.9
DC further IVF
Anemia-acute on chronic
monitor, suspect some acute blood loss as well given recent surgery and hemodilution
Start IV iron
Hemoglobin 7 07/23, transfuse 1 unit PRBC and monitor
repeat H/H later today
No signs of bleeding
DVT prophylaxis-
Pneumatic compression sleeves, full dose aspirin
CODE STATUS-
Full code.
General: No Apparent Distress
HEENT: Hearing Impaired; No Moist mucous membranes
Respiratory: Clear; No Wheezes, Rales, Rhonchi or Crackles
Cardiac: S1/S2 and Regular Rhythm; No Murmur, Rub or Gallop
GI: Soft, Non Tender, Non Distended and Normal Bowel Sounds
: + keith
Musculoskeletal: No Edema
Neuro: AO x 3 and No Motor Deficits
I spent a total of 52 minutes with the patient or on the floor. More than 50% of this time involved counseling and coordination of care.
Anticipated Discharge: Within 24 hours
Subjective/Interval History
-
Date of Service: July 23, 2025
denies pain
Objective Data
-
Labs:
Laboratory Results
07/23/25
06:01
WBC 8.1
Hgb 7.0 L
Hct 21.4 L
Plt Count 203
Sodium 137
Potassium 4.1
Chloride 107
Carbon Dioxide 26
BUN 16
Creatinine 0.8
Glucose 168 H
Calcium 8.3 L
Vital Signs:
Vital Signs
Temp Pulse Resp BP Pulse Ox
98.9 F 78 16 130/59 98
07/23/25 07:10 07/23/25 07:10 07/23/25 07:10 07/23/25 07:10 07/23/25 07:10
I&O
07/22/25 07/23/25 07/24/25
06:59 06:59 06:59
Intake Total 1080 / 1080 1080 / 1080
Output Total 1700 / 1700 1500 / 1500
Balance -620 / -620 -420 / -420
[2025-07-23 11:57] LABS: Glucose - Point of Care 250 mg/dl (70-99)
[2025-07-23] MEDS: NOVOLOG FLEXPEN-LOW RESISTANCE 3 UNITS SC (13:17)
[2025-07-23] MEDS: FERRLECIT 110 MG IV (14:27)
[2025-07-23 15:16] LABS: Hematocrit 25.7 % (39.0-52.0); Hemoglobin 8.5 g/dL (13.0-18.0)
--- NOTE | 2025-07-23 15:28 | W.DCSUMMARY ---
Discharge Summary
Discharge Data
Date of Admission: 07/20/25
Date of Discharge: 07/23/25
-
Pending Results: No
Hospital Course
79-year-old male with past medical history of type 2 diabetes mellitus, essential hypertension, anemia came to the hospital after a fall with displaced found commuted fracture of left intertrochanteric femur. Patient was seen by orthopedics and was
taken for surgery for left hip gamma nail. Patient tolerated the procedure well. Postop patient was evaluated by physical therapy who recommended SNF. While patient was in the hospital he also had acute urinary retention and was started on Flomax
along with Ibrahim catheter. On discharge patient instructed to get a voiding trial once ambulatory and to follow-up with urology outpatient. Also he was found to have acute on chronic anemia without any active bleeding. Anemia was likely thought
was secondary to recent surgery. Patient required 1 unit of blood transfusion which improved his hemoglobin to 8.5. Since his symptoms continue to improve, he was then discharged to rehab with instructions to follow-up with all his physicians
outpatient.
Discharge Plan
-
Patient Disposition: Assisted/SNF
Discharge Diagnosis/Procedures: Displaced noncomminuted fracture of left intertrochanteric femur with inferior extension into the subtrochanteric region status post surgery
Acute urinary retention
Type 2 diabetes mellitus
Acute on chronic anemia
Renal insufficiency
Condition: Good
Diet: Diabetic, Carb Controlled
Activity: As tolerated and With Walker
Driving Restrictions: Not until seen by your Dr
Bathing Restrictions: None
Blood Work: CBC next week at rehab
Activity Restrictions/Additional Instructions:
Continue WBAT B/L LEs on walker
PT/OT
ASA 325mg daily x 4 weeks, mechanical devices for DVT ppx. Once full dose aspirin is finished for DVT prophylaxis then go back to baby aspirin that you take daily.
Dressing to remain 7-10 days
Pain control, ice to hip, avoid narcs if possible
Loretta out 2 weeks (office or SNF)
Discontinue Ibrahim catheter when ambulatory. Follow-up with urology outpatient
Referrals:
Jr Almanzar MD [Family Provider, Family Practice]
Wilton Maynard MD [Active, Urology]
Niall Borja MD [Active, Orthopedics] - in one week
Prescriptions:
New
aspirin 325 mg Tablet
325 mg PO DAILY Qty: 0 0RF
docusate sodium 100 mg Capsule
100 mg PO BID Qty: 0 0RF
tamsulosin 0.4 mg Capsule
0.4 mg PO DAILY Qty: 0 0RF
pantoprazole 40 mg Tablet,Delayed Release (Dr/Ec)
40 mg PO DAILY Qty: 0 0RF
Continued
multivitamin Tablet
1 tab PO DAILY
metformin 500 mg tablet
1,000 mg PO BID@0800,1700
cyanocobalamin (vitamin B-12) 1,000 mcg Tablet
1,000 mcg PO DAILY Qty: 0
ferrous sulfate 325 mg (65 mg iron) Tablet
325 mg PO DAILY
lisinopril 5 mg tablet
5 mg PO DAILY
cholecalciferol (vitamin D3) [Vitamin D3] 25 mcg (1,000 unit) Tablet
25 mcg PO DAILY Qty: 0
omega 7-[id number]-fish oil [Fish Oil] 1,000 mg (120 mg-180 mg) Capsule
1 cap PO DAILY
atorvastatin [Lipitor] 20 mg Tablet
20 mg PO DAILY
acetaminophen [Tylenol] 325 mg Tablet
650 mg PO BID
glipizide 10 mg tablet
10 mg PO BID@0800,1700
Changed
tramadol 50 mg tablet
25 mg PO BID PRN (Reason: Pain) Qty: 6 0RF
Held
aspirin 81 mg Tablet,Chewable
81 mg PO DAILY
Hold Instructions: Restart when done with full dose aspirin
Discharge Orders:
Discharge Patient (As Directed); Ordered 07/23/25
Ordered By: Jay Jhaveri
Discharge Date and Time
Discharge Date/Time: 07/23/25 18:45
Print Language: KENYAN
[2025-07-23 17:38] LABS: Glucose - Point of Care 223 mg/dl (70-99)
[2025-07-23] MEDS: NOVOLOG FLEXPEN-LOW RESISTANCE 2 UNITS SC (17:38)
[2025-07-24 04:35] LABS: Transferrin 167 mg/dL (200-360)
== END 2025-07-23 18:45 | DRG 481 ==
LOC: 2 SOUTH 12:40
PROVIDERS: Orthopaedic Surgery Hand Surgery; Student in an Organized Health Care Education/Training Program; ADMITTING PHYSICIAN Internal Medicine; EMERGENCY PHYSICIAN Student in an Organized Health Care Education/Training Program; FAMILY PHYSICIAN Family Medicine; OTHER PHYSICIAN Student in an Organized Health Care Education/Training Program
PROC: 0QS706Z Reposition Left Upper Femur with Intramedullary Internal Fixation Device, Open Approach (ICD-10-PCS; 2025-07-20)
PROC: 30233N1 Transfusion of Nonautologous Red Blood Cells into Peripheral Vein, Percutaneous Approach (ICD-10-PCS; 2025-07-23)
DX: S72.142A Displaced intertrochanteric fracture of left femur, initial encounter for closed fracture (principal); I45.2 Bifascicular block; D50.9 Iron deficiency anemia, unspecified; I10 Essential (primary) hypertension; E11.9 Type 2 diabetes mellitus without complications; W19.XXXA Unspecified fall, initial encounter; N28.9 Disorder of kidney and ureter, unspecified; Z79.82 Long term (current) use of aspirin; Z79.84 Long term (current) use of oral hypoglycemic drugs; Z79.899 Other long term (current) drug therapy; E78.00 Pure hypercholesterolemia, unspecified; H91.90 Unspecified hearing loss, unspecified ear
CPT/HCPCS: 73502; 73551; 73700; 76000; 76770; 80048; 80053; 81003; 82607; 82728; 82746; 82947; 82962; 83036; 83540; 83550; 84466; 85014; 85018; 85025; 85610; 85730; 86850; 86900; 86901; 86920; 93005; 97110; 97116; 97162; 97166; 97530; 97535; 99284; C1713; J2916; P9016

== ENCOUNTER 2025-10-15 17:13 | Inpatient (IN) | payer MEDICARE, SELFPAY ==
[2025-10-15] VITALS (12 sets, daily range): BP systolic 103–166; BP diastolic 51–131; BMI 22.8
[2025-10-15 12:30] LABS: Hematocrit 30.2 % (39.0-52.0); Hemoglobin 9.7 g/dL (13.0-18.0); Mean Corp Hgb Conc. 32.1 g/dL (33.0-37.0); Mean Corpuscular Volume 91.5 fL (80.0-94.0); Nucleated Red Blood Cells % 0.2 % (-); Platelet Count 431 10^3/uL (130-400); Red Cell Dist. Width 17.6 % (11.5-14.5)
[2025-10-15 12:45] LABS: ALT (SGPT) 11 U/L (0-50); AST (SGOT) 14 U/L (17-59); Albumin 4.0 g/dl (3.5-5.0); Alkaline Phosphatase 92 U/L (38-126); Blood Urea Nitrogen 24 mg/dl (9-20); Calcium 9.0 mg/dl (8.4-10.2); Carbon Dioxide 24 mmol/L (22-30); Chloride 100 mmol/L (98-107); Glucose 257 mg/dl (70-99); Sodium 132 mmol/L (135-145); Total Protein 7.1 g/dl (6.3-8.2); eGFR 35.00
[2025-10-15 12:53] LABS: Potassium 6.1 mmol/L (3.5-5.1)
[2025-10-15 13:01] LABS: COVID-19 Antigen Negative (Negative)
--- NOTE | 2025-10-15 13:28 | ED.GENMED ---
History of Present Illness
<Hilary Guevara PA-C - Last Filed: 10/15/25 16:41>
General
Chief Complaint: Weakness
Source: patient and family
Exam Limitations: none
Time Seen by Provider: 10/15/25 13:06
History of Present Illness
History of Present Illness:
80yoM with a history of type 2 diabetes, hypertension, hyperlipidemia presenting with his side for evaluation of generalized weakness. Patient was hospitalized in June of this year for a left hip fracture which required surgery. He had
postoperative urinary retention and was discharged to SNF with a Ibrahim catheter in place. Catheter was removed several months ago. He has had recurrent UTIs since then and is currently on his fourth different antibiotic. He is finishing a 10 day
course of Bactrim and has one dose left. He reports urinary frequency and urinating in small amounts at a time for the past several months but denies dysuria. He started vomiting 3-4 days ago and has been unable to tolerate PO intake. He had a
fall a few days ago in which he hit his head and broke the drywall. He is feeling extremely fatigued and his PCP advised him to go to the ED for evaluation. No fevers, chest pain, shortness of breath.
Past History
<Hilary Guevara PA-C - Last Filed: 10/15/25 16:41>
Past History
ED Past Medical History: NIDDM and Other (Cataracts)
ED Past Surgical History: Orthopedic
Phy Exam
<Hilary Guevara PA-C - Last Filed: 10/15/25 16:41>
Physical Exam
Physical Exam:
Appears chronically ill, no apparent distress
General Physical Exam
General Presentation: no apparent distress
General Skin: warm and dry
General Habitus: elderly
General Mental: alert
ENT Exam
ENT Exam: normocephalic
Cardiovascular Exam
Cardiovascular Exam: regular rate/rhythm and no edema
Pulmonary Exam
Pulmonary Exam: lungs clear, no respiratory distress, no rales, no crackles, no rhonchi, no stridor and no wheezing
Gastrointestinal Exam
Gastrointestinal Exam: soft, non distended and other (Mild tenderness in lower abdomen)
Neurological Exam
Neurological Exam: alert
[place]ham Coma Scale
Eye Opening: Spontaneous
Verbal Response: Oriented
Motor Response: Obeys Commands
GCS Total Score: 15
Skin Exam
Skin Exam: normal color and warm/dry
Psychiatric Exam
Psychiatric Exam: normal mood/affect
Course
<Hilary Guevara PA-C - Last Filed: 10/15/25 16:41>
Orders/Labs/Results
Orders:
Orders
10/15/25 12:03
Electrocardiogram (*1) Urgent
Reason for Study: Fatigue / Weakness
EKG- Treatment ONCE
10/15/25 12:10
COVID-19 Antigen Urgent
Source: Nasal Swab
Complete Blood Count/With Diff Urgent
Comprehensive Metabolic Panel Urgent
Influenza A+B Rapid Molecular Urgent
SAHARA Source: Nasal Swab
Specimen Description:
Date Specimen was Collected: 10/15/25
Time Specimen was Collected: 12:02
10/15/25 13:25
CT Abd/pel Without Iv Or Oral Urgent
Comment:
Reason For Exam: MICHELET
Bladder Scan- Treatment ONCE
0.9% Sodium Chloride 1000 ml [Nss] 1,000 ml IV BOLUS
10/15/25 13:26
Cardiac Monitoring- Treatment ONCE
Albuterol Sulfate [Ventolin Nebules] 10 mg INH R NOW STA
Calcium Gluconate 1,000 mg IV NOW STA
Dextrose 50%-Water [Dextrose 50% Syringe] 12.5 grams IV [id number] PRN
Dextrose 50%-Water [Dextrose 50% Syringe] 25 grams IV NOW STA
Insulin Human Regular [Novolin R] 5 units IV NOW STA
Bedside Glucose PRE IV Insulin- HyperK+ NOW
10/15/25 13:29
CT Cervical Spine W/o Iv Contr Urgent
Comment:
Reason For Exam: fall, head injury
CT Head W/o Iv Contrast Urgent
Comment:
Reason For Exam: fall, head injury, vomiting
10/15/25 13:58
Ibrahim Placement- Treatment ONCE
Reason for insertion: Acute Retention
10/15/25 14:04
Urinalysis Reflex To Culture Urgent
Date Specimen was Collected: 10/15/25
Time Specimen was Collected: 12:02
Urine Microscopic Reflex Cult Urgent
Urine Culture Urgent
SAHARA Source: U
Specimen Description:
Date Specimen was Collected: 10/15/25
Time Specimen was Collected: 12:02
10/15/25 14:56
Bedside Glucose POST IV Insulin- HyperK+ Q1HX2,Q2HX2
10/15/25 15:51
Potassium Urgent
Comment: draw 2 hours after regular insulin IV administration
10/15/25 16:22
Admit/Transfer Patient As Directed
Co-Sign Provider:
Level of Care: Inpatient admission
Assign to:: Telemetry
Physician / Group: Sharif Jeong
Diagnosis: MICHELET, hyperkalemia
Reason for Telemetry: Arrhythmia
Date to Stop Telemetry: 10/18/25
Time to Stop Telemetry: 11:00
Reason for Hospitalization: MICHELET, hyperkalemia
Expected length of stay greater than two midnights?: Yes
ELOS- Estimated Length of Stay in days: 3
I certify the patient meets the requirements for IP care: Yes
PRN Pain Medication Management As Directed
May give lesser potent ordered pain med per pt: Yes
preference::
Protocol:: Medication orders for pain may be administered in a
manner that supports deferring to patient preference
when the pt is:
- Requesting an ordered lesser potent pain medication.
Least to most potent pain medications are defined
as: acetaminophen < NSAID < tramadol < opioids
(morphine, oxycodone, hydromorphone).
- Requesting a lesser dose of the same medication IF
ORDERED.
- Requesting a less intrusive route of administration
if both routes are prescribed by the provider (PO <
IV).
10/15/25 16:24
Code Status As Directed
Resuscitation Status: Full Code
10/18/25 11:00
DC Protocol for Telemetry ONCE
Abnormal Lab Results
10/15/25 10/15/25 10/15/25
12:10 13:52 14:04
RBC 3.30 L 10^6/uL
(4.70-6.10)
Hgb 9.7 L g/dL
(13.0-18.0)
Hct 30.2 L %
(39.0-52.0)
MCHC 32.1 L g/dL
(33.0-37.0)
RDW 17.6 H %
(11.5-14.5)
Plt Count 431 H 10^3/uL
(130-400)
MPV 10.8 H fL
(7.4-10.4)
Abs Immat Gran (auto) 0.2 H 10^3/uL
(0-0.05)
Absolute Monos (auto) 0.7 H 10^3/uL
(0.1-0.6)
Immature Gran % 2.3 H %
(0-0.5)
Sodium 132 L mmol/L
(135-145)
Potassium 6.1 H* mmol/L
(3.5-5.1)
BUN 24 H mg/dl
(9-20)
Creatinine 1.9 H mg/dL
(0.7-1.3)
Glucose 257 H mg/dl
(70-99)
AST 14 L U/L
(17-59)
Leukocyte Esterase Rfl 1+ A
(Negative)
Urine WBC (Reflex) 26-30 A /HPF
(0-5)
Urine Bacteria (Reflex) Few A
(Negative)
Urine Glucose 4+ A
(Negative)
Urine Albumin (Reflex) 2+ A
(Neg - Trace)
POC Glucose 257 H mg/dl
(70-99)
10/15/25
15:07
RBC
Hgb
Hct
MCHC
RDW
Plt Count
MPV
Abs Immat Gran (auto)
Absolute Monos (auto)
Immature Gran %
Sodium
Potassium
BUN
Creatinine
Glucose
AST
Leukocyte Esterase Rfl
Urine WBC (Reflex)
Urine Bacteria (Reflex)
Urine Glucose
Urine Albumin (Reflex)
POC Glucose 288 H mg/dl
(70-99)
10/15/25 12:10
10/15/25 15:51
Vital Signs
Initial and Last Documented VS:
Initial Vital Signs
Temp Pulse Resp BP Pulse Ox
98.3 F 67 18 130/60 98
10/15/25 11:57 10/15/25 11:57 10/15/25 11:57 10/15/25 11:57 10/15/25 11:57
Last Documented Vital Signs
Temp Pulse Resp BP Pulse Ox
98.3 F 114 2 127/62 95
10/15/25 11:57 10/15/25 15:42 10/15/25 15:42 10/15/25 15:42 10/15/25 15:42
<Clay Novak MD - Last Filed: 10/15/25 14:43>
Orders/Labs/Results
Orders:
Orders
10/15/25 12:03
Electrocardiogram (*1) Urgent
Reason for Study: Fatigue / Weakness
EKG- Treatment ONCE
10/15/25 12:10
COVID-19 Antigen Urgent
Source: Nasal Swab
Complete Blood Count/With Diff Urgent
Comprehensive Metabolic Panel Urgent
Influenza A+B Rapid Molecular Urgent
SAHARA Source: Nasal Swab
Specimen Description:
Date Specimen was Collected: 10/15/25
Time Specimen was Collected: 12:02
10/15/25 13:25
CT Abd/pel Without Iv Or Oral Urgent
Comment:
Reason For Exam: MICHELET
Bladder Scan- Treatment ONCE
0.9% Sodium Chloride 1000 ml [Nss] 1,000 ml IV BOLUS
10/15/25 13:26
Cardiac Monitoring- Treatment ONCE
Albuterol Sulfate [Ventolin Nebules] 10 mg INH R NOW STA
Calcium Gluconate 1,000 mg IV NOW STA
Dextrose 50%-Water [Dextrose 50% Syringe] 12.5 grams IV [id number] PRN
Dextrose 50%-Water [Dextrose 50% Syringe] 25 grams IV NOW STA
Insulin Human Regular [Novolin R] 5 units IV NOW STA
Bedside Glucose PRE IV Insulin- HyperK+ NOW
10/15/25 13:29
CT Cervical Spine W/o Iv Contr Urgent
Comment:
Reason For Exam: fall, head injury
CT Head W/o Iv Contrast Urgent
Comment:
Reason For Exam: fall, head injury, vomiting
10/15/25 13:58
Ibrahim Placement- Treatment ONCE
Reason for insertion: Acute Retention
10/15/25 14:04
Urinalysis Reflex To Culture Urgent
Date Specimen was Collected: 10/15/25
Time Specimen was Collected: 12:02
Urine Microscopic Reflex Cult Urgent
Urine Culture Urgent
SAHARA Source: U
Specimen Description:
Date Specimen was Collected: 10/15/25
Time Specimen was Collected: 12:02
10/15/25 14:56
Bedside Glucose POST IV Insulin- HyperK+ Q1HX2,Q2HX2
10/15/25 15:51
Potassium Urgent
Comment: draw 2 hours after regular insulin IV administration
10/15/25 16:22
Admit/Transfer Patient As Directed
Co-Sign Provider:
Level of Care: Inpatient admission
Assign to:: Telemetry
Physician / Group: Sharif Jeong
Diagnosis: MICHELET, hyperkalemia
Reason for Telemetry: Arrhythmia
Date to Stop Telemetry: 10/18/25
Time to Stop Telemetry: 11:00
Reason for Hospitalization: MICHELET, hyperkalemia
Expected length of stay greater than two midnights?: Yes
ELOS- Estimated Length of Stay in days: 3
I certify the patient meets the requirements for IP care: Yes
PRN Pain Medication Management As Directed
May give lesser potent ordered pain med per pt: Yes
preference::
Protocol:: Medication orders for pain may be administered in a
manner that supports deferring to patient preference
when the pt is:
- Requesting an ordered lesser potent pain medication.
Least to most potent pain medications are defined
as: acetaminophen < NSAID < tramadol < opioids
(morphine, oxycodone, hydromorphone).
- Requesting a lesser dose of the same medication IF
ORDERED.
- Requesting a less intrusive route of administration
if both routes are prescribed by the provider (PO <
IV).
10/15/25 16:24
Code Status As Directed
Resuscitation Status: Full Code
10/18/25 11:00
DC Protocol for Telemetry ONCE
Abnormal Lab Results
10/15/25 10/15/25 10/15/25
12:10 13:52 14:04
RBC 3.30 L 10^6/uL
(4.70-6.10)
Hgb 9.7 L g/dL
(13.0-18.0)
Hct 30.2 L %
(39.0-52.0)
MCHC 32.1 L g/dL
(33.0-37.0)
RDW 17.6 H %
(11.5-14.5)
Plt Count 431 H 10^3/uL
(130-400)
MPV 10.8 H fL
(7.4-10.4)
Abs Immat Gran (auto) 0.2 H 10^3/uL
(0-0.05)
Absolute Monos (auto) 0.7 H 10^3/uL
(0.1-0.6)
Immature Gran % 2.3 H %
(0-0.5)
Sodium 132 L mmol/L
(135-145)
Potassium 6.1 H* mmol/L
(3.5-5.1)
BUN 24 H mg/dl
(9-20)
Creatinine 1.9 H mg/dL
(0.7-1.3)
Glucose 257 H mg/dl
(70-99)
AST 14 L U/L
(17-59)
Leukocyte Esterase Rfl 1+ A
(Negative)
Urine WBC (Reflex) 26-30 A /HPF
(0-5)
Urine Bacteria (Reflex) Few A
(Negative)
Urine Glucose 4+ A
(Negative)
Urine Albumin (Reflex) 2+ A
(Neg - Trace)
POC Glucose 257 H mg/dl
(70-99)
10/15/25
15:07
RBC
Hgb
Hct
MCHC
RDW
Plt Count
MPV
Abs Immat Gran (auto)
Absolute Monos (auto)
Immature Gran %
Sodium
Potassium
BUN
Creatinine
Glucose
AST
Leukocyte Esterase Rfl
Urine WBC (Reflex)
Urine Bacteria (Reflex)
Urine Glucose
Urine Albumin (Reflex)
POC Glucose 288 H mg/dl
(70-99)
10/15/25 12:10
10/15/25 15:51
Vital Signs
Initial and Last Documented VS:
Initial Vital Signs
Temp Pulse Resp BP Pulse Ox
98.3 F 67 18 130/60 98
10/15/25 11:57 10/15/25 11:57 10/15/25 11:57 10/15/25 11:57 10/15/25 11:57
Last Documented Vital Signs
Temp Pulse Resp BP Pulse Ox
98.3 F 114 2 127/62 95
10/15/25 11:57 10/15/25 15:42 10/15/25 15:42 10/15/25 15:42 10/15/25 15:42
Ondinalt;Hilary Guevara PA-C - Last Filed: 10/15/25 16:41>
MDM/Problems Addressed
Differential Diagnosis Includes:
80yoM here with n/v and fatigue x several days. Recurrent UTIs x several months. VSS. Patient chronically ill appearing but non-toxic. Lab work obtained in triage which shows an acute kidney injury. Creatinine 1.9, up from baseline of 0.8. Potassium
also critically high at 6.1. No peaked T waves noted on EKG.
MICHELET likely multifactorial due to vomiting, Bactrim use, as well as urinary retention. Postvoid residual 401cc. Will order Ibrahim catheter, temporizing measures with insulin/albuterol/calcium, 1L NS bolus, and obtain CT abdomen without contrast.
Patient will require hospitalization.
<Hilary Guevara PA-C - Last Filed: 10/15/25 16:41>
*Pulse Oximetry
SaO2: 97
Oxygen Mode of Delivery: Room air
Patient hypoxic: no
*EKG
Interpreted by ED Provider?: Yes
EKG Intrepretation Date: 10/15/25
Heart Rate: 64
Rate: normal
Rhythm: sinus
[place]: left axis deviation
Interval: other (Bifascicular block)
Ischemia: no ischemia
*Critical Care Note
Total Time (30-74mins, 75-104mins- exclusive of procedures): Not Applicable
ED Attending Note
<Hilary Guevara PA-C - Last Filed: 10/15/25 16:41>
-
Portions of this chart may have been created with voice recognition software.� Occasional wrong word or��sound alike� substitutions may have occurred due to the inherent limitations of voice recognition software.
<Clay Novak MD - Last Filed: 10/15/25 14:43>
ED Attending Note
Patient seen and examined by attending physician: Yes
I performed the substantive portion of visit, reviewed & personally made and approve the management plan that is documented in note by myself or KRYSTINA.: Yes
ED Attending Note:
I have seen and evaluated the patient with a [id number] encounter. I have spoken to the [KRYSTINA] and involved in the medical history, the physical exam, medical decision making.
Evaluation and management service: agree unless noted differently below.
Results interpretation: agree unless noted differently below.
80-year-old man presenting to the emergency department generalized weakness. Patient's son is at bedside provides most with history. States that he was recently diagnosed with a UTI and is currently on Bactrim. However the weakness has been
persistent. He is also had a few falls. Patient otherwise denies any numbness tingling chest pain lightheadedness dizziness. On my evaluation patient is resting comfortably. His abdomen is soft nondistended nontender. His lungs are clear to
auscultation. Blood work was obtained prior evaluation which does show hyperkalemia as well as MICHELET. Will give hyper-K protocol. Patient is also retaining urine. Ibrahim placed. Will obtain CT scan to evaluate for any blockages. Patient also had
recurrent falls. Will obtain CT head and C-spine. Patient will need admission.
Discharge Plan
Departure
Patient Disposition: Admit
Date of Disposition: 10/15/25
Time of Disposition: 15:34
Presentation/result/management discussed w/ accepting MD/DO: Hospitalist
Discharge Problem:
Acute kidney injury, Hyperkalemia
Prescriptions:
No Action
metformin 500 mg tablet
1,000 mg PO BID@0800,1700
cyanocobalamin (vitamin B-12) 1,000 mcg Tablet
1,000 mcg PO DAILY Qty: 0
ferrous sulfate 325 mg (65 mg iron) Tablet
325 mg PO DAILY
lisinopril 5 mg tablet
5 mg PO DAILY
cholecalciferol (vitamin D3) [Vitamin D3] 25 mcg (1,000 unit) Tablet
25 mcg PO DAILY Qty: 0
omega 3-snk-kto-fish oil [Fish Oil] 1,000 mg (120 mg-180 mg) Capsule
1 cap PO DAILY
atorvastatin [Lipitor] 20 mg Tablet
20 mg PO DAILY
acetaminophen [Tylenol] 325 mg Tablet
650 mg PO BID
glipizide 10 mg tablet
10 mg PO BID@0800,1700
tamsulosin 0.4 mg Capsule
0.4 mg PO DAILY Qty: 0 0RF
pantoprazole 40 mg Tablet,Delayed Release (Dr/Ec)
40 mg PO DAILY Qty: 0 0RF
Theragen Tablet
1 tab PO DAILY
sulfamethoxazole-trimethoprim [Sulfamethoprim DS] 800-160 mg Tablet
1 tab PO Q12H
Rx Instructions:
start date 10/07/25 end date 10/17/25 MKO
aspirin 81 mg Tablet,Chewable
81 mg PO DAILY
Referrals:
Jr Almanzar MD [Family Provider, Family Practice]
Interventions
Interventions:
*General Assessment Last Done: 10/15/25 12:00
*Neglect/Abuse Screening Last Done: 10/15/25 12:00
*ED COVID-19 Vaccine History Last Done: 10/15/25 12:00
*ED Influenza Vaccine History Last Done: 10/15/25 12:00
[facility] Fall Risk Assessment Tool Last Done: 10/15/25 13:37
*Risk Screen - Suicide (C-SSRS) Last Done: 10/15/25 12:00
ED- Cardiac Assessment Last Done: 10/15/25 13:37
ED- Neurological Assessment Last Done: 10/15/25 13:37
ED- Pulmonary Assessment Last Done: 10/15/25 13:37
Discharge Date and Time
Print Language: INDONESIAN
--- NOTE | 2025-10-15 13:45 | PHANOTE ---
MED REC NOTE - CHECKED WITH FAMILY MEMBERS UNSURE OF DOSAGE FOR MEDS - WILL CALL [facility] AFTER THEIR LUNCH BREAK
[2025-10-15 13:53] LABS: Glucose - Point of Care 257 mg/dl (70-99)
[2025-10-15] MEDS: NOVOLIN R 5 UNITS IV (13:54)
[2025-10-15] MEDS: VENTOLIN NEBULES 10 MG INH (13:54)
[2025-10-15] MEDS: CALCIUM GLUCONATE 1000 MG IV (13:54)
[2025-10-15] MEDS: DEXTROSE 50% SYRINGE 25 GRAMS IV (13:54)
[2025-10-15] MEDS: NSS 1000 IV ×2 (13:56→21:36)
[2025-10-15 14:22] LABS: Urine Character Clear (Clear)
[2025-10-15 14:48] LABS: Urine Red Blood Cell 0-2 /HPF (0-2)
[2025-10-15 14:49] LABS: Urine White Cell 26-30 /HPF (0-5)
[2025-10-15 15:09] LABS: Glucose - Point of Care 288 mg/dl (70-99)
--- NOTE | 2025-10-15 15:39 | HPS.HSE ---
Family Physician
-
Family Physician: Jr Almanzar
Chief Complaint
-
generalized weakness
History of Present Illness
Patient is a 80-year-old male with past medical history significant for hypertension, hyperlipidemia, type 2 diabetes, iron deficiency anemia, GERD and Hx urinary retention who presented to [facility] ED for evaluation of generalized weakness. Son at
bedside to assist with HPI, patient [place] and not utilizing hearing aids. Patient hospitalized in end of June 2025 for commuted fracture of left intertrochanteric femur with left hip gamma nail. During hospitalization patient had acute urinary
retention with Ibrahim catheter placed. Since hospital discharge patient was able to have Ibrahim removed. Since then he has had recurrent UTIs and is currently on 4th antibiotic from primary care office. Son reports he has noticed a decline in last
week. He reports finding patient in bed 2 days last week midday, asleep and this is unlike him. He has evidence of fall at home but unknown when it occurred. Patient endorsed nausea and vomiting x3-4 days, decreased appetite and decreased fluid
intake. Denies fever, chills, cough, shortness of breath, chest pain, constipation or diarrhea.
Medical History
Past Medical History
Past Medical History: Reports Other
Additional Past Medical History:
hypertension
hyperlipidemia
type 2 diabetes
iron deficiency anemia
GERD
Hx urinary retention
Past Surgical History: Reports Other
Additional Past Surgical History:
Left Hip Gamma Nail AWR 07/20/25
Social History
Tobacco: Non-smoker
Alcohol: None
Drug: None
Personal:
Living: With Family
Employment: Retired
Family History
Family History: Not pertinent
Allergies / Home Medications
Allergies reflects when Allergies were last updated in [facility].
Home Medications with original date entered in [facility]
Allergy/Medication List:
Allergies
Allergy/AdvReac Type Severity Reaction Status Date / Time
No Known Allergies Allergy Verified 10/15/25 12:01
Home Medications
cholecalciferol (vitamin D3) 25 mcg (1,000 unit) tablet (Vitamin D3) 25 mcg PO DAILY Supplement ##0 04/18/23
cyanocobalamin (vitamin B-12) 1,000 mcg tablet 1,000 mcg PO DAILY Supplement ##0 04/18/23
ferrous sulfate 325 mg (65 mg iron) tablet 325 mg PO DAILY Supplement 04/18/23
lisinopril 5 mg tablet 5 mg PO DAILY Blood Pressure 04/18/23
metformin 500 mg tablet 1,000 mg PO BID@0800,1700 Diabetes 04/18/23
omega 0-ulf-ikg-fish oil 1,000 mg (120 mg-180 mg) capsule (Fish Oil) 1 cap PO DAILY Supplement 04/18/23
atorvastatin 20 mg tablet (Lipitor) 20 mg PO DAILY High Cholesterol 09/08/23
acetaminophen 325 mg tablet (Tylenol) 650 mg PO BID Pain 07/20/25
glipizide 10 mg tablet 10 mg PO BID@0800,1700 07/20/25
pantoprazole 40 mg tablet,delayed release 40 mg PO DAILY #0 tabs 07/23/25
tamsulosin 0.4 mg capsule 0.4 mg PO DAILY #0 caps 07/23/25
aspirin 81 mg chewable tablet 81 mg PO DAILY 10/15/25
sulfamethoxazole 800 mg-trimethoprim 160 mg tablet 1 tab PO Q12H 10/15/25
therapeutic multivitamin 1 tab PO DAILY 10/15/25
Review of Systems
-
History Source: Patient and Family
Constitutional: Reports Fatigue; Denies Fever or Chills
EENT: Denies Sore Throat
Respiratory: Denies Cough, Hemoptysis or Trouble Breathing
Cardiac: Denies Chest Pain, Diaphoresis, Palpitations or Syncope
Abdomen/GI: Reports Nausea and Vomiting; Denies Abdominal Pain, Diarrhea or Constipated
: Reports Frequency, Difficulty Voiding and Urgency; Denies Dysuria
Musculoskeletal: Denies Joint Pain
Skin: Denies Rash
Neurological: Reports Weakness; Denies Dizzy, Headache or Numbness
Endocrine: Denies Polyuria
Physical Exam
Vital Signs
Vital Signs
Temp Pulse Resp BP Pulse Ox
98.3 F 61 20 128/67 95
10/15/25 11:57 10/15/25 13:05 10/15/25 13:05 10/15/25 13:03 10/15/25 13:37
Physical Exam
General: Well Developed, Well Nourished, No Apparent Distress, Comfortable and Conversant
HEENT: NormoCephalic, PERRLA, Nose Appears Normal, Ears Appear Normal and Hearing Impaired; No Moist mucous membranes
Respiratory: Clear and Non Labored Respirations; No Wheezes, Rales or Rhonchi
Cardiac: S1/S2 and Regular Rhythm; No Murmur, Rub, Gallop or Peripheral Edema
GI: Soft, Non Tender, Non Distended and Normal Bowel Sounds
Musculoskeletal: No Clubbing and No Cyanosis
Skin: Warm and IV/Catheter Site
Neuro: Awake and AO x 3
Psych: Calm and Intact Judgment/Insight
Laboratory Results
-
10/15/25 12:10
Laboratory Results
Total Bilirubin 0.3 mg/dl (0.2-1.3) 10/15/25 12:10
AST 14 U/L (17-59) L 10/15/25 12:10
ALT 11 U/L (0-50) 10/15/25 12:10
Alkaline Phosphatase 92 U/L (38-126) 10/15/25 12:10
Data Reviewed
-
CT Scan: Report Reviewed by me (Head: No acute intracranial abnormalities. 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 Findings again seen compatible with diffuse cortical atrophy with nonspecific white matter changes as described above.;
c-spine: Straightening of the normal cervical lordotic curvature. Marked degenerati)
Lab Data: Labs Reviewed by me (hgb 9.7, hct 30.2, Na+ 132, K+ 6.1, BUN 24, Creat 1.9, eGFR 35.00 )
Impression/Plan
-
IMPRESSION/PLAN:
#generalized weakness 2/2 infectious process vs. deconditioning vs. MICHELET
#acute urinary retention
#acute kidney injury
generalized weakness w/ evidence of falls, increased fatigue, recurrent UTI, nausea and vomiting
Na+ 132, K+ 6.1, BUN 24, Creat 1.9, eGFR 35.00
UA: suggestive of possible UTI
Urine Cx: pending
Covid: negative
Influenza: negative
EKG: SINUS RHYTHM WITH PREMATURE ATRIAL COMPLEXES
RIGHT BUNDLE BRANCH BLOCK
LEFT ANTERIOR FASCICULAR BLOCK
BIFASCICULAR BLOCK
Head CT: No acute intracranial abnormalities.
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
Findings again seen compatible with diffuse cortical atrophy with nonspecific white matter changes as described above.
C-Spine CT: Straightening of the normal cervical lordotic curvature.
Marked degenerative changes.
No findings to suggest recent cervical spine fracture.
Abd/Pel CT: Cholelithiasis.
Bilateral hydroureteronephrosis without renal or ureteral calculus.
Small bladder calculi. Small bladder diverticula. No significant bladder wall thickening.
Minor diverticulosis without acute diverticulitis. No bowel obstruction.
- Admit to telemetry
- Consult Urology
- Ibrahim placed in ED for acute retention
- continue tamsulosin
- IVF NS 70cc/hr
- trend BMP
- Consult PT
#hyperkalemia
K+ 6.1
- treated in ED with IV insulin
- monitor BMP
#hypertension
- continue lisinopril
#hyperlipidemia
- continue atorvastatin
#type 2 diabetes
- AccuCheck AC & HS
- SSI
- continue glipizide
- hold metformin while acutely ill
#iron deficiency anemia
hgb 9.7, hct 30.2
appears stable, monitor H/H
- continue ferrous sulfate
#GERD
- continue pantoprazole
Code status: full code
DVT prophylaxis: heparin sq
[2025-10-15 16:09] LABS: Potassium 4.4 mmol/L (3.5-5.1)
--- NOTE | 2025-10-15 16:58 | W.PN.UPDATE ---
Update Note
Progress Note Update
Attending note
Patient seen independently
80-year-old man with past medical history of:
hypertension,
hyperlipidemia,
type 2 diabetes,
iron deficiency anemia,
GERD
urinary retention
presented with generalized weakness. Hospitalized in end of June 2025 for commuted fracture of left intertrochanteric femur with left hip gamma nail. Has had recurrent UTIs and is currently on 4th antibiotic from primary care office. Has
declined in last week. Evidence of fall at home but not known when it occurred. + nausea and vomiting x 3-4 days, decreased appetite and decreased fluid intake. Denies fever, chills, cough, shortness of breath, chest pain, constipation or diarrhea.
Very [place]
Past Medical History
hypertension
hyperlipidemia
type 2 diabetes
iron deficiency anemia
GERD
Hx urinary retention
Past Surgical History: Reports Other
Additional Past Surgical History:
Left Hip Gamma Nail AWR 07/20/25
Physical Exam
General: Well Developed, Well Nourished,
HEENT: NormoCephalic,
Respiratory: Clear and Non Labored Respirations;
Cardiac: S1/S2 and Regular Rhythm;
GI: Soft, Non Tender, Non Distended
Neuro: Awake, alert
Psych: Calm
IMPRESSION/PLAN:
1. generalized weakness 2/2 infectious process vs. deconditioning vs. MICHELET
Complicated by acute urinary retention
Complicated by acute kidney injury
- Consult Urology
- Ibrahim placed in ED for acute retention
- continue tamsulosin
- IVF NS 70cc/hr
- trend BMP
- Consult PT
2. hyperkalemia
- treated in ED with IV insulin
- monitor BMP
Please see SYNCHRO ASSEMBLER note for full details on
hypertension
hyperlipidemia
type 2 diabetes
iron deficiency anemia
GERD
Code status: full code
DVT prophylaxis: heparin sq
--- NOTE | 2025-10-15 17:38 | CM ---
Chart reviewed. Spoke with pt and his son Steven at ED bedside
he is [place]
Lives in a split level home with
5 ANITA and 5 steps to the bedroom
Independent with ADLs
ambulating with RW
DME RW shower chair and shower rails
Son takes his grocery shopping
Dtr in [place]
[facility]
hx of [facility]
hx of [facility]
DCP is to go home with HHC if indicated
Cm will continue to follow up for any dcp needs
[2025-10-15 18:19] LABS: Glucose - Point of Care 427 mg/dl (70-99)
[2025-10-15 18:21] LABS: Glucose - Point of Care 409 mg/dl (70-99)
[2025-10-15 19:18] LABS: Glucose 407 mg/dl (70-99)
[2025-10-15] MEDS: NOVOLOG FLEXPEN-LOW RESISTANCE 300 UNITS SC (19:57)
[2025-10-15 23:45] LABS: Glucose - Point of Care 407 mg/dl (70-99)
[2025-10-16] VITALS (7 sets, daily range): BP systolic 112–165; BP diastolic 45–70; PULSE 64; O2SAT 97; BMI 20.9
[2025-10-16 00:29] LABS: Glucose 360 mg/dl (70-99)
[2025-10-16] MEDS: HEPARIN 5000 UNITS SC ×4 (01:05→23:04)
[2025-10-16] MEDS: NOVOLOG FLEXPEN 5 UNITS SC (01:05)
--- NOTE | 2025-10-16 02:57 | TRANSFER ---
Pt transferred to 3w from ed via stretcher. Pt ambulated from stretcher to hospital bed. AAOx3, oriented to room, call dsouza within reach, plan of care ongoing.
[2025-10-16 03:15] LABS: Glucose - Point of Care 160 mg/dl (70-99)
--- NOTE | 2025-10-16 03:56 | PTCARENOTE ---
PCT checked Pt glucose per protocol and notified this RN of a 'RR High' result. This RN notified [facility] for stat glucose, which resulted as 360. FACILITIES MANAGER notified, order placed. Glucose rechecked 2 hours after treatment, FACILITIES MANAGER again notified. Plan of
care ongoing.
[2025-10-16 08:03] LABS: Glucose - Point of Care 157 mg/dl (70-99)
[2025-10-16 08:27] LABS: Hematocrit 25.2 % (39.0-52.0); Hemoglobin 8.1 g/dL (13.0-18.0); Mean Corp Hgb Conc. 32.1 g/dL (33.0-37.0); Mean Corpuscular Volume 92.3 fL (80.0-94.0); Platelet Count 363 10^3/uL (130-400); Red Cell Dist. Width 17.8 % (11.5-14.5)
[2025-10-16] MEDS: NOVOLOG FLEXPEN-LOW RESISTANCE 1 UNITS SC (08:53)
[2025-10-16] MEDS: LOW STRENGTH ASPIRIN 81 MG PO (08:54)
[2025-10-16] MEDS: PROTONIX 40 MG PO (08:54)
[2025-10-16] MEDS: ZESTRIL 5 MG PO (08:54)
[2025-10-16] MEDS: FEOSOL 325 MG PO (08:54)
[2025-10-16] MEDS: LIPITOR 20 MG PO (08:54)
[2025-10-16] MEDS: FLOMAX 0.4 MG PO (08:54)
[2025-10-16] MEDS: NSS 1000 IV (10:11)
[2025-10-16 10:36] LABS: Blood Urea Nitrogen 19 mg/dl (9-20); Calcium 8.6 mg/dl (8.4-10.2); Carbon Dioxide 23 mmol/L (22-30); Chloride 105 mmol/L (98-107); Estimated Creatinine Clearance 34 ml/min; Glucose 146 mg/dl (70-99); Potassium 6.0 mmol/L (3.5-5.1); Sodium 132 mmol/L (135-145); eGFR 46.48
[2025-10-16 10:50] LABS: Glycohemoglobin (HgbA1c) 8.9 % (4.0-5.9)
[2025-10-16 11:56] LABS: Glucose - Point of Care 239 mg/dl (70-99)
--- NOTE | 2025-10-16 11:59 | CONS.URO ---
Consultation
-
Date/Time Consultation Performed: 1130 10/16/25
Performing Provider: Peffer
Reason for Consultation: Urinary retention, hydronephrosis
Medical History
History of Present Illness
80M with unknown prior urologic history
Patient poor historian
Had a hip fracture 06/2025 s/p repair
During that admission had urinary retention with keith placement
At some point after discharge his catheter was removed/ Unknown where/when TOV was done
Since that time he has had multiple episodes of 'UTI' which was based on symptoms of severe urinary frequency
No cultures or info from those visits available in our system
He did see Dr. Montez in our office 09/01/25 and was emptying well with minimal symptoms and only 43cc PVR
Advised to continue tamsulosin at that time
He was brought to ER 10/15 with altered mental status, fatigue, confusion
Found to have MICHELET and appearance of significant urinary retention with bilateral hydroureteronephrosis on CT
Keith was placed and he was admitted
Renal function has improved overnight
Past Medical History
Past Medical History: Reports Other
Additional Past Medical History:
hypertension
hyperlipidemia
type 2 diabetes
iron deficiency anemia
GERD
Hx urinary retention
Past Surgical History:
Left Hip Gamma Nail
Social History
Tobacco: Non-smoker
Alcohol: None
Drug: None
Personal:
Living: With Family
Employment: Retired
Family History
Family History: Not pertinent
Allergies/Home Medications
Allergies
Allergy/AdvReac Type Severity Reaction Status Date / Time
No Known Allergies Allergy Verified 10/15/25 12:01
Home Medications
�Medication �Instructions �Recorded �Confirmed �Type
cholecalciferol (vitamin D3) 25 25 mcg PO DAILY Supplement ##0 04/18/23 10/15/25 History
mcg (1,000 unit) tablet (Vitamin
D3)
cyanocobalamin (vitamin B-12) 1,000 mcg PO DAILY Supplement ##0 04/18/23 10/15/25 History
1,000 mcg tablet
ferrous sulfate 325 mg (65 mg 325 mg PO DAILY Supplement 04/18/23 10/15/25 History
iron) tablet
lisinopril 5 mg tablet 5 mg PO DAILY Blood Pressure 04/18/23 10/15/25 History
metformin 500 mg tablet 1,000 mg PO BID@0800,1700 Diabetes 04/18/23 10/15/25 History
omega 0-gje-ipd-fish oil 1,000 mg 1 cap PO DAILY Supplement 04/18/23 10/15/25 History
(120 mg-180 mg) capsule (Fish Oil)
atorvastatin 20 mg tablet (Lipitor) 20 mg PO DAILY High Cholesterol 09/08/23 10/15/25 History
acetaminophen 325 mg tablet 650 mg PO BID Pain 07/20/25 10/15/25 History
(Tylenol)
glipizide 10 mg tablet 10 mg PO BID@0800,1700 07/20/25 10/15/25 History
pantoprazole 40 mg tablet,delayed 40 mg PO DAILY #0 tabs 07/23/25 10/15/25 Rx
release
tamsulosin 0.4 mg capsule 0.4 mg PO DAILY #0 caps 07/23/25 10/15/25 Rx
aspirin 81 mg chewable tablet 81 mg PO DAILY 10/15/25 10/15/25 History
sulfamethoxazole 800 1 tab PO Q12H 10/15/25 10/15/25 History
mg-trimethoprim 160 mg tablet
therapeutic multivitamin 1 tab PO DAILY 10/15/25 10/15/25 History
Physical Exam
Vital Signs
Vital Signs
Temp Pulse Resp BP Pulse Ox
98.1 F 59 19 141/59 98
10/16/25 08:31 10/16/25 08:31 10/16/25 08:31 10/16/25 08:31 10/16/25 08:31
Lab / Testing Results
Laboratory Results
10/16/25 07:45
10/16/25 07:44
Physical Exam
General: Well Developed, Well Nourished and No Apparent Distress
Respiratory: Clear and Non Labored Respirations
GI: Soft and Non Tender
Genito-urinary: No Costovertebral Tend
Neuro: Awake and Alert
Psych: Calm
Assessment / Plan
-
80M with recent hip fracture s/p repair with urinary retention during admission 06/2025
Subsequent follow up and emptying well 08/2025, but now admitted with recurrent urinary retention
MICHELET and bilateral hydroureteronephrosis likely due to reflux from retention
- s/p keith placement with improvement in renal function. Trend BMP
- F/U urine culture for possible component of UTI
- Continue tamsulosin
- Add finasteride 5mg daily to continue outpatient
Given likely high volume retention, would recommend keith stay in place at least 2 weeks
Follow up with Dr. Montez for additional testing and/or catheter removal after discharge
[2025-10-16] MEDS: NOVOLOG FLEXPEN-LOW RESISTANCE 2 UNITS SC (12:40)
[2025-10-16] MEDS: PROSCAR 5 MG PO (12:41)
--- NOTE | 2025-10-16 15:42 | W.PN.HOSP.TC ---
Today's Communication/Plan
-
Assessment / Plan
Assessment / Plan
Acute urinary retention with bilateral hydroureteronephrosis complicated by MICHELET and hyperkalemia
S/p Ibrahim placement
Improvement in renal function
Continue Flomax and finasteride
Hyperkalemia
Temporize
Lokelma 3 times daily
Low K diet
Hold losartan
Avoid K sparing agents
Repeat BMP at 8 PM
Monitor on telemetry
MICHELET secondary to postobstructive uropathy
Ibrahim placed
Improving
IV fluid
Avoid nephrotoxins hypotension
Hyperlipidemia
Continue statin
Type 2 diabetes, [id number]
Accu-Cheks
Sliding scale
Hold metformin due to MICHELET
Continue glipizide
GERD
Continue PPI
Anticipated Discharge: 24 - 48 hours
Subjective/Interval History
-
Date of Service: October 16, 2025
Seen and examined. No new complaints. No acute overnight events.
Objective Data
-
Labs:
Laboratory Results
10/16/25 10/16/25
07:44 07:45
WBC 10.5
Hgb 8.1 L
Hct 25.2 L
Plt Count 363
Sodium 132 L
Potassium 6.0 H D
Chloride 105
Carbon Dioxide 23
BUN 19
Creatinine 1.5 H
Glucose 146 H
Calcium 8.6
Vital Signs:
Vital Signs
Temp Pulse Resp BP Pulse Ox
97.7 F 65 17 112/45 96
10/16/25 12:17 10/16/25 12:17 10/16/25 12:17 10/16/25 12:17 10/16/25 12:17
I&O
10/15/25 10/16/25 10/17/25
06:59 06:59 06:59
Intake Total 480 / 480
Output Total 700 / 700
Balance -220 / -220
Physical Exam
-
General: No Apparent Distress and Comfortable
HEENT: Normocephalic and Atraumatic
Respiratory: Clear to Auscultation
Cardiac: Regular Rhythm and S1/S2
GI: Soft, Nontender and Nondistended
Genito-urinary: No Costovertebral Tender, Clear Urine and Ibrahim
Musculoskeletal: No Clubbing, No Cyanosis and No Edema
Psych: Calm
[2025-10-16 16:20] LABS: Glucose - Point of Care 312 mg/dl (70-99)
[2025-10-16] MEDS: CALCIUM GLUCONATE 1000 MG IV (16:22)
[2025-10-16] MEDS: NOVOLIN R 0.1 UNITS IV ×2 (16:42→23:54)
[2025-10-16 17:24] LABS: Glucose - Point of Care 223 mg/dl (70-99)
[2025-10-16] MEDS: LOKELMA 10 GRAM PO (17:46)
[2025-10-16 18:27] LABS: Glucose - Point of Care 97 mg/dl (70-99)
[2025-10-16] MEDS: NOVOLOG FLEXPEN-LOW RESISTANCE SC (18:44)
[2025-10-16 18:54] LABS: Potassium 5.3 mmol/L (3.5-5.1)
[2025-10-16 20:37] LABS: Blood Urea Nitrogen 20 mg/dl (9-20); Calcium 8.8 mg/dl (8.4-10.2); Carbon Dioxide 17 mmol/L (22-30); Chloride 108 mmol/L (98-107); Estimated Creatinine Clearance 37 ml/min; Glucose 140 mg/dl (70-99); Potassium 6.0 mmol/L (3.5-5.1); Sodium 131 mmol/L (135-145); eGFR 50.49
[2025-10-16 20:59] LABS: Glucose - Point of Care 215 mg/dl (70-99)
[2025-10-16 23:12] LABS: Glucose - Point of Care 339 mg/dl (70-99)
--- NOTE | 2025-10-16 23:15 | PTCARENOTE ---
Pt BS was taken, result of 339. House provider was TT. Potassium level @ 2000 was 6.0. An order for 10 units of insulin IV was given. BS prior to IV insulin was 321. Order for urgent potassium was entered for 2 hours after IV administration. Will
continue to follow post IV insulin protocol.
[2025-10-16 23:55] LABS: Glucose - Point of Care 321 mg/dl (70-99)
[2025-10-17] MEDS: SODIUM BICARBONATE 1100 MEQ IV ×2 (00:50→15:28)
[2025-10-17 01:06] LABS: Glucose - Point of Care 210 mg/dl (70-99)
[2025-10-17 02:19] LABS: Glucose - Point of Care 165 mg/dl (70-99)
[2025-10-17 03:00] VITALS: BP 142/66
[2025-10-17 04:30] LABS: Potassium 5.5 mmol/L (3.5-5.1)
[2025-10-17 04:35] LABS: Glucose - Point of Care 197 mg/dl (70-99)
[2025-10-17] MEDS: DEXTROSE 50% SYRINGE 25 GRAMS IV ×2 (04:54→09:57)
[2025-10-17] MEDS: NOVOLIN R 0.05 UNITS IV (05:18)
[2025-10-17 05:25] LABS: Glucose - Point of Care 265 mg/dl (70-99)
[2025-10-17 07:15] LABS: Hematocrit 25.7 % (39.0-52.0); Hemoglobin 8.3 g/dL (13.0-18.0); Mean Corp Hgb Conc. 32.3 g/dL (33.0-37.0); Mean Corpuscular Volume 90.8 fL (80.0-94.0); Nucleated Red Blood Cells % 0 % (-); Platelet Count 366 10^3/uL (130-400); Red Cell Dist. Width 17.6 % (11.5-14.5)
[2025-10-17 07:19] LABS: Blood Urea Nitrogen 18 mg/dl (9-20); Calcium 8.6 mg/dl (8.4-10.2); Carbon Dioxide 23 mmol/L (22-30); Chloride 103 mmol/L (98-107); Estimated Creatinine Clearance 43 ml/min; Glucose 235 mg/dl (70-99); Potassium 5.5 mmol/L (3.5-5.1); Sodium 130 mmol/L (135-145); eGFR > 60.00
[2025-10-17 07:26] LABS: Glucose - Point of Care 237 mg/dl (70-99)
[2025-10-17 07:40] VITALS: BP 164/79
[2025-10-17] MEDS: LOKELMA 10 GRAM PO ×2 (07:54→13:45)
[2025-10-17] MEDS: NOVOLOG FLEXPEN-LOW RESISTANCE 2 UNITS SC (08:44)
[2025-10-17] MEDS: FLOMAX 0.4 MG PO (09:32)
[2025-10-17] MEDS: LIPITOR 20 MG PO (09:32)
[2025-10-17] MEDS: PROTONIX 40 MG PO (09:33)
[2025-10-17] MEDS: FEOSOL 325 MG PO (09:33)
[2025-10-17] MEDS: PROSCAR 5 MG PO (09:33)
[2025-10-17] MEDS: LOW STRENGTH ASPIRIN 81 MG PO (09:33)
[2025-10-17] MEDS: HEPARIN 5000 UNITS SC ×2 (09:33→15:28)
[2025-10-17 09:34] LABS: Glucose - Point of Care 236 mg/dl (70-99)
[2025-10-17] MEDS: NOVOLIN R 0.1 UNITS IV (09:54)
[2025-10-17] MEDS: CALCIUM GLUCONATE 1000 MG IV (09:57)
[2025-10-17 11:00] VITALS: BP 103/63
[2025-10-17 11:09] LABS: Glucose - Point of Care 196 mg/dl (70-99)
[2025-10-17 12:17] LABS: Glucose - Point of Care 130 mg/dl (70-99)
[2025-10-17] MEDS: NOVOLOG FLEXPEN-LOW RESISTANCE SC (12:18)
--- NOTE | 2025-10-17 12:27 | W.PN.HOSP.TC ---
Today's Communication/Plan
-
Assessment / Plan
Assessment / Plan
Acute urinary retention with bilateral hydroureteronephrosis complicated by MICHELET and hyperkalemia
S/p Ibrahim placement
Improvement in renal function
Continue Flomax and finasteride
Hyperkalemia
Temporize
Lokelma 3 times daily
Low K diet
Hold/avoid K sparing agents
Repeat BMP at 4 PM
Monitor on telemetry
MICHELET secondary to postobstructive uropathy
Ibrahim placed
Improving
IV fluid
Avoid nephrotoxins hypotension
Hyperlipidemia
Continue statin
Type 2 diabetes, [id number]
Accu-Cheks
Sliding scale
Hold metformin due to MICHELET
Continue glipizide
GERD
Continue PPI
Anticipated Discharge: > 48 hours
Subjective/Interval History
-
Date of Service: October 17, 2025
Seen and examined. No new complaints. No acute overnight events.
Objective Data
-
Labs:
Laboratory Results
10/17/25 10/17/25 10/17/25
02:25 03:38 06:00
WBC Cancelled
Hgb Cancelled
Hct Cancelled
Plt Count Cancelled
Sodium Cancelled
Potassium Cancelled 5.5 H Cancelled
Chloride Cancelled
Carbon Dioxide Cancelled
BUN Cancelled
Creatinine Cancelled
Glucose Cancelled
Calcium Cancelled
10/17/25 10/17/25 10/17/25
06:45 12:16 16:00
WBC 8.8
Hgb 8.3 L
Hct 25.7 L
Plt Count 366
Sodium 130 L Pending
Potassium 5.5 H Pending Pending
Chloride 103 Pending
Carbon Dioxide 23 Pending
BUN 18 Pending
Creatinine 1.2 Pending
Glucose 235 H Pending
Calcium 8.6 Pending
Vital Signs:
Vital Signs
Temp Pulse Resp BP Pulse Ox
98.1 F 65 18 164/79 96
10/17/25 07:40 10/17/25 07:40 10/17/25 07:40 10/17/25 07:40 10/17/25 08:53
I&O
10/16/25 10/17/25 10/18/25
06:59 06:59 06:59
Intake Total 480 / 480 1040 / 1040 480 / 480
Output Total 700 / 700 900 / 900 1900 / 1900
Balance -220 / -220 140 / 140 -1420 / -1420
Physical Exam
-
General: Well Developed, Well Nourished, No Apparent Distress and Comfortable
HEENT: Normocephalic and Atraumatic
Respiratory: Clear to Auscultation
Cardiac: Regular Rhythm and S1/S2
GI: Soft, Nontender, Nondistended and Normal Bowel Sounds
Genito-urinary: No Costovertebral Tender and Clear Urine
Musculoskeletal: No Clubbing, No Cyanosis and No Edema
Neuro: Awake and AO x 3
[2025-10-17 12:50] LABS: Potassium 5.0 mmol/L (3.5-5.1)
[2025-10-17 14:06] LABS: Glucose - Point of Care 382 mg/dl (70-99)
[2025-10-17 15:30] VITALS: BP 146/75
[2025-10-17 16:19] LABS: Glucose - Point of Care 305 mg/dl (70-99)
[2025-10-17] MEDS: NOVOLOG FLEXPEN-LOW RESISTANCE 4 UNITS SC (16:19)
--- NOTE | 2025-10-17 16:29 | PTCARENOTE ---
Pt's 1400 blood sugar value 382 post hyperkalemia protocol. MD notified, no new orders at this time. Upon reassessment at 1600, level is 305, 4 units sliding scale given with dinner. Plan of care ongoing.
[2025-10-17 17:55] LABS: Blood Urea Nitrogen 18 mg/dl (9-20); Calcium 8.4 mg/dl (8.4-10.2); Carbon Dioxide 25 mmol/L (22-30); Chloride 98 mmol/L (98-107); Estimated Creatinine Clearance 43 ml/min; Glucose 266 mg/dl (70-99); Potassium 4.8 mmol/L (3.5-5.1); Sodium 129 mmol/L (135-145); eGFR > 60.00
[2025-10-17 19:42] VITALS: BP 140/58
[2025-10-17 21:35] LABS: Glucose - Point of Care 378 mg/dl (70-99)
[2025-10-17] MEDS: NOVOLOG FLEXPEN 5 UNITS SC (21:45)
[2025-10-17 22:53] VITALS: BP 132/57
[2025-10-18] MEDS: HEPARIN 5000 UNITS SC ×2 (00:30→09:15)
[2025-10-18 02:42] VITALS: BP 138/58
[2025-10-18 03:54] LABS: Glucose - Point of Care 187 mg/dl (70-99)
--- NOTE | 2025-10-18 03:55 | PTCARENOTE ---
At HS AccuCheck Pt glucose, 378. MANAGER PARK on floor and notified at this time, coverage ordered. Post treatment AccuCheck 187. MANAGER PARK notified.
[2025-10-18 07:31] VITALS: BP 144/74
[2025-10-18 07:36] LABS: Hematocrit 26.8 % (39.0-52.0); Hemoglobin 8.7 g/dL (13.0-18.0); Mean Corp Hgb Conc. 32.5 g/dL (33.0-37.0); Mean Corpuscular Volume 91.8 fL (80.0-94.0); Platelet Count 374 10^3/uL (130-400); Red Cell Dist. Width 17.3 % (11.5-14.5)
[2025-10-18 08:10] LABS: Blood Urea Nitrogen 18 mg/dl (9-20); Calcium 8.6 mg/dl (8.4-10.2); Carbon Dioxide 27 mmol/L (22-30); Chloride 101 mmol/L (98-107); Estimated Creatinine Clearance 43 ml/min; Glucose 212 mg/dl (70-99); Potassium 4.8 mmol/L (3.5-5.1); Sodium 131 mmol/L (135-145); eGFR > 60.00
[2025-10-18] MEDS: LIPITOR 20 MG PO (09:15)
[2025-10-18] MEDS: FLOMAX 0.4 MG PO (09:15)
[2025-10-18] MEDS: PROSCAR 5 MG PO (09:15)
[2025-10-18] MEDS: FEOSOL 325 MG PO (09:15)
[2025-10-18] MEDS: PROTONIX 40 MG PO (09:15)
[2025-10-18] MEDS: LOW STRENGTH ASPIRIN 81 MG PO (09:15)
[2025-10-18] MEDS: NOVOLOG FLEXPEN-LOW RESISTANCE 2 UNITS SC (09:21)
--- NOTE | 2025-10-18 09:24 | VNURNOTE ---
Chart reviewed. Patient is current with [facility]. Will continue to follow hospital course and DC plans.
--- NOTE | 2025-10-18 11:16 | CM ---
Addendum entered by Sparkle Kim 10/18/25 15:23:
patient discharged today
IMM explained & signed. In chart
plan; home with [facility]
Son to transport
Original Note:
Patient current with [facility]
referral in [facility]
PT rec home health
PLAN: Home with [facility] when stable
[2025-10-18 11:23] VITALS: BP 135/64
[2025-10-18 11:25] LABS: Glucose - Point of Care 229 mg/dl (70-99)
[2025-10-18 11:25] LABS: Glucose - Point of Care 225 mg/dl (70-99)
[2025-10-18 11:30] LABS: Glucose - Point of Care 354 mg/dl (70-99)
--- NOTE | 2025-10-18 12:22 | W.DCSUMMARY ---
Discharge Summary
Discharge Data
Date of Admission: 10/15/25
Date of Discharge: 10/18/25
-
Pending Results: No
Hospital Course
80-year-old male with past medical history significant for hypertension, hyperlipidemia, type 2 diabetes, iron deficiency anemia, GERD and Hx urinary retention
Presented with generalized weakness. CT demonstrated bilateral hydroureteronephrosis without renal or ureteral calculus. BMP concerning for MICHELET that was post obstructive. Therefore, keith was placed, urology consulted. Uro started finasteride and
rec to maintian keith for at least 2 week if not longer. Additionally, BMP showed hyperkaemia with a K in the 6's which is likely secondary to the MICHELET. Therefore, temporized and provided with marykelma with an improvement of potassium to the 4's.
Repeat BMP in 1 week with PCP. I personally called the PCP office to inform them to send a script over.
With saying that, BG was elevated, hemoglobin a1c was 8.9. Will return on home metformin and glipizide. Would discuss with PCP about dexcom and continued use of glipizide in the elderly.
CTAP
IMPRESSION:
Cholelithiasis.
Bilateral hydroureteronephrosis without renal or ureteral calculus.
Small bladder calculi. Small bladder diverticula. No significant bladder wall thickening.
Minor diverticulosis without acute diverticulitis. No bowel obstruction.
C-spine
IMPRESSION:
Straightening of the normal cervical lordotic curvature.
Marked degenerative changes.
No findings to suggest recent cervical spine fracture.
Head CT
IMPRESSION:
No acute intracranial abnormalities.
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
Findings again seen compatible with diffuse cortical atrophy with nonspecific white matter changes as described above.
Seen and examined on the day of discharge which was 10/18. no new complaints. no acute ovenright events
General: Well Developed, Well Nourished, No Apparent Distress and Comfortable
HEENT: Normocephalic and Atraumatic
Respiratory: Clear to Auscultation
Cardiac: Regular Rhythm and S1/S2
GI: Soft, Nontender, Nondistended and Normal Bowel Sounds
Genito-urinary: No Costovertebral Tender and Clear Urine in keith bag
Musculoskeletal: No Clubbing, No Cyanosis and No Edema
Discharge Plan
-
Patient Disposition: Home with Home Care
Discharge Diagnosis/Procedures: TME
Acute urinary retention
MICHELET
Hyperkalemia
Diet: As tolerated and Diabetic, Carb Controlled
Activity: As tolerated
Blood Work: BMP with PCP
Activity Restrictions/Additional Instructions:
Presented with generalized weakness. CT demonstrated bilateral hydroureteronephrosis without renal or ureteral calculus. BMP concerning for MICHELET that was post obstructive. Therefore, keith was placed, urology consulted. Uro started finasteride and
rec to maintian keith for at least 2 week if not longer. Additionally, BMP showed hyperkaemia with a K in the 6's which is likely secondary to the MICHELET. Therefore, temporized and provided with [facility] with an improvement of potassium to the 4's.
Repeat BMP in 1 week with PCP. I personally called the PCP office to inform them to send a script over.
With saying that, BG was elevated, hemoglobin a1c was 8.9. Will return on home metformin and glipizide. Would discuss with PCP about dexcom and continued use of glipizide in the elderly.
CTAP
IMPRESSION:
Cholelithiasis.
Bilateral hydroureteronephrosis without renal or ureteral calculus.
Small bladder calculi. Small bladder diverticula. No significant bladder wall thickening.
Minor diverticulosis without acute diverticulitis. No bowel obstruction.
C-spine
IMPRESSION:
Straightening of the normal cervical lordotic curvature.
Marked degenerative changes.
No findings to suggest recent cervical spine fracture.
Head CT
IMPRESSION:
No acute intracranial abnormalities.
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
Findings again seen compatible with diffuse cortical atrophy with nonspecific white matter changes as described above.
Referrals:
Jr Almanzar MD [Family Provider, Family Practice]
Reggie Correa MD [Active, Urology] - in two weeks
Prescriptions:
New
finasteride 5 mg Tablet
5 mg PO DAILY Qty: 30 0RF
Continued
metformin 500 mg tablet
1,000 mg PO BID@0800,1700
cyanocobalamin (vitamin B-12) 1,000 mcg Tablet
1,000 mcg PO DAILY Qty: 0
ferrous sulfate 325 mg (65 mg iron) Tablet
325 mg PO DAILY
lisinopril 5 mg tablet
5 mg PO DAILY
cholecalciferol (vitamin D3) [Vitamin D3] 25 mcg (1,000 unit) Tablet
25 mcg PO DAILY Qty: 0
omega [id number]-fish oil [Fish Oil] 1,000 mg (120 mg-180 mg) Capsule
1 cap PO DAILY
atorvastatin [Lipitor] 20 mg Tablet
20 mg PO DAILY
acetaminophen [Tylenol] 325 mg Tablet
650 mg PO BID
glipizide 10 mg tablet
10 mg PO BID@0800,1700
tamsulosin 0.4 mg Capsule
0.4 mg PO DAILY Qty: 0 0RF
pantoprazole 40 mg Tablet,Delayed Release (Dr/Ec)
40 mg PO DAILY Qty: 0 0RF
therapeutic multivitamin Tablet
1 tab PO DAILY
sulfamethoxazole-trimethoprim 800-160 mg Tablet
1 tab PO Q12H
Rx Instructions:
start date 10/07/25 end date 10/17/25 MKO
aspirin 81 mg Tablet,Chewable
81 mg PO DAILY
Discharge Orders:
Discharge Patient (As Directed); Ordered 10/18/25
Ordered By: Ko Chan
Discharge Date and Time
Print Language: LITHUANIAN
[2025-10-18] MEDS: NOVOLOG FLEXPEN-MODERATE RESISTANCE 9 UNITS SC (12:44)
[2025-10-18] MEDS: NOVOLOG FLEXPEN-LOW RESISTANCE SC (12:50)
[2025-10-18 13:06] VITALS: BP 136/72; PULSE 90
== END 2025-10-18 15:21 | disposition home health service (06) | DRG 682 ==
LOC: 3 WEST ACU 17:13
PROVIDERS: Emergency Medicine; Nurse Practitioner Family; Physician Assistant; ADMITTING PHYSICIAN Internal Medicine; ATTENDING PHYSICIAN Hospitalist; CONSULT PHYSICIAN Urology; EMERGENCY PHYSICIAN Student in an Organized Health Care Education/Training Program; FAMILY PHYSICIAN Family Medicine
DX: N17.9 Acute kidney failure, unspecified (principal); G92.8 Other toxic encephalopathy; I10 Essential (primary) hypertension; E78.00 Pure hypercholesterolemia, unspecified; E11.9 Type 2 diabetes mellitus without complications; D50.9 Iron deficiency anemia, unspecified; K21.9 Gastro-esophageal reflux disease without esophagitis; R33.9 Retention of urine, unspecified; Z87.440 Personal history of urinary (tract) infections; Z79.84 Long term (current) use of oral hypoglycemic drugs; E87.5 Hyperkalemia; R29.6 Repeated falls; N13.30 Unspecified hydronephrosis; Z11.52 Encounter for screening for COVID-19
CPT/HCPCS: 51702; 51798; 70450; 72125; 74176; 80048; 80053; 81003; 81015; 82947; 82962; 83036; 84132; 85025; 85027; 87086; 87502; 87811; 93005; 94640; 96374; 96375; 97116; 97162; 97530; 99285